=== PATIENT | male | born 1945 ===

== ENCOUNTER 2017-04-25 05:34 | Emergency (ER) | payer OTHER, MEDICARE ==
[2017-04-25 06:02] VITALS: RESP 18; O2SAT 99
[2017-04-25] MEDS ORDERED: Sodium Chloride 0.9% 1,000 ML IV STA (06:47)
--- NOTE | 2017-04-25 06:56 | ED PDOC ---
HPI: Headache Time Seen by Provider: 04/25/17 06:32 Chief Complaint (Nursing): Headache Chief Complaint (Provider): Headache History Per: Patient History/Exam Limitations: no limitations Onset/Duration Of Symptoms: Days (x10) Current Symptoms Are (Timing): Still Present Associated Symptoms: denies: Photophobia, Blurred Vision, Extremity Weakness Additional Complaint(s): 71 year old male presents to ED with complaints of headache and has a past medical history of DM. Describes the headache as constant and throbbing, not thunderclap. (-) photophobia, phonophobia, weakness, numbness, fever, or neck stiffness. States that he came in today because his symptoms kept him from sleeping and denies taking any medication [employer]. Patient also notes resolving abdominal pain present in the right flank area present since yesterday. Patient also notes x2 days of dysuria, (+) chills. PCP: Dr. Ortega in [place] Past Medical History Reviewed: Historical Data, Nursing Documentation, Vital Signs Vital Signs: Last Vital Signs Temp 98.9 F 04/25/17 05:55 Pulse 74 04/25/17 05:55 Resp 18 04/25/17 05:55 BP 144/77 04/25/17 05:55 Pulse Ox 99 04/25/17 05:55 - Medical History PMH: Benign Prostatic Hyperplasia, Diabetes, HTN - Surgical History Surgical History: Hernia Repair ( x 2) - Family History Family History: States: Unknown Family Hx - Social History Alcohol: Occasional - Home Medications Home Medications: Ambulatory Orders Medication Instructions Recorded Alfuzosin Hydrochloride 10 mg PO DAILY 12/31/14 Cetirizine Hydrochloride 10 mg PO DAILY 12/31/14 [Cetirizine] Glimepiride 4 mg PO BID 12/31/14 Methylprednisolone [Medrol Dose 4 mg PO DAILY 12/31/14 Pack (21 tabs)] Pioglitazone [Actos] 15 mg PO DAILY 12/31/14 Prednisone 10 mg PO BID #10 tab 12/31/14 Propranolol [Inderal] 20 mg PO BID 12/31/14 Ranitidine HCl [Ranitidine 150] 150 mg PO BID 12/31/14 Sitagliptin Phosphate [Januvia] 100 mg PO DAILY 12/31/14 hydrOXYzine HCl [Atarax] 25 mg PO Q6H PRN 12/31/14 Naproxen 500 mg PO Q12 #20 tab 07/02/15 Sulfamethoxazole/Trimethopri 1 tab PO BID #20 tab 07/02/15 [Bactrim Ds 800 mg-160 mg] Ibuprofen [Motrin] 400 mg PO Q8 #30 tab 07/12/15 Ibuprofen [Motrin] 600 mg PO Q8 PRN #21 tab 08/30/15 diaZEpam [Valium] 5 mg PO Q6 PRN #8 tab 08/30/15 Tramadol Hydrochloride 50 mg PO Q6 PRN #15 tab 09/02/15 - Allergies Allergies/Adverse Reactions: Allergies Allergy/AdvReac Type Severity Reaction Status Date / Time No Known Allergies Allergy Verified 04/25/17 05:54 Review of Systems ROS Statement: Except As Marked, All Systems Reviewed And Found Negative Constitutional: Positive for: Chills. Negative for: Fever Eyes: Negative for: Other (photophobia) ENT: Negative for: Other (phonophobia) Gastrointestinal: Positive for: Abdominal Pain (resolving right flank pain) Genitourinary Male: Positive for: Dysuria Musculoskeletal: Negative for: Neck Pain (no neck stiffness) Neurological: Positive for: Headache. Negative for: Weakness, Numbness Physical Exam - Reviewed Nursing Documentation Reviewed: Yes Vital Signs Reviewed: Yes - Physical Exam Appears: Positive for: Well, Non-toxic, No Acute Distress Head Exam: Positive for: ATRAUMATIC Skin: Positive for: Normal Color, Warm, Dry Eye Exam: Positive for: Normal appearance, EOMI, PERRL ENT: Positive for: Normal ENT Inspection Neck: Positive for: Normal, Painless ROM, Supple Cardiovascular/Chest: Positive for: Regular Rate, Rhythm. Negative for: Murmur Respiratory: Positive for: Normal Breath Sounds. Negative for: Respiratory Distress Gastrointestinal/Abdominal: Positive for: Normal Exam, Soft. Negative for: Tenderness Back: Positive for: Normal Inspection Extremity: Positive for: Normal ROM. 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 Negative for: Motor/Sensory Deficits - ECG O2 Sat by Pulse Oximetry: 99 (RA) Pulse Ox Interpretation: Normal Medical Decision Making Medical Decision Makin Initial impression: migraine headache, unspecified abdominal pain Initial plan: * CT A/P * CT HEAD * EKG * Labs * Lipase * NS IV * Reglan 10mg IVP * Toradol 30mg IVP * UCx * UA * Re-eval Scribe Attestation: Documented by Kenya Nunez acting as a scribe for Addison Deshpande MD. Scribe Attestation: All medical record entries made by the Scribe were at my direction and personally dictated by me. I have reviewed the chart and agree that the record accurately reflects my personal performance of the history, physical exam, medical decision making, and the department course for this patient. I have also personally directed, reviewed, and agree with the discharge instructions and disposition. Disposition - Clinical Impression Clinical Impression: Migraine - Disposition Referrals: Marcelino Perez MD [Primary Care Provider] - Disposition: Transfer of Care Disposition Time: 07:00 Condition: STABLE Patient Signed Over To: Taras Tan Handoff Comments: Pending work up
[2017-04-25 07:23] LABS: BASO % 0.7 % (0.0-2.0); EOS # 0.1 K/uL (0.0-0.7); EOS % 1.8 % (0.0-4.0); HEMOGLOBIN 14.1 g/dL (12.0-18.0); LYMPH # 1.2 K/uL (1.0-4.3); LYMPH % 18.5 % (20.0-40.0); MEAN CELL VOLUME 88.1 fl (80.0-94.0); MEAN CORPUSCULAR HEMOGLOBIN 30.2 pg (27.0-31.0); MEAN CORPUSCULAR HGB CONC 34.2 g/dL (33.0-37.0); MEAN PLATELET VOLUME 10.2 fl (7.2-11.7); MONO # 0.6 K/uL (0.0-0.8); MONO % 8.9 % (0.0-10.0); NEUT # 4.6 K/uL (1.8-7.0); NEUT % 70.1 % (50.0-75.0); NRBC % 0.1 % (0.0-0.0); RBC 4.69 Mil/uL (4.40-5.90); WHITE BLOOD COUNT 6.6 K/uL (4.8-10.8)
[2017-04-25 07:37] LABS: ALB/GLOB RATIO 1.3 (1.0-2.1); ALBUMIN 4.1 g/dL (3.5-5.0); ALT/SGPT 61 U/L (21-72); AST/SGOT 53 U/L (17-59); BLOOD UREA NITROGEN 14 mg/dl (9-20); GFR AFRICAN-AMERICAN > 60; GFR NON-AFRICAN AMERICAN > 60; LIPASE 125 U/L (23-300)
--- NOTE | 2017-04-25 08:18 | CT ---
PROCEDURE: CT HEAD WITHOUT CONTRAST. HISTORY: ABBOTT x 10 days COMPARISON: None available. TECHNIQUE: Axial computed tomography images were obtained through the head/brain without intravenous contrast. Radiation dose: Total exam DLP = 869.25 mGy-cm. This CT exam was performed using one or more of the following dose reduction techniques: Automated exposure control, adjustment of the mA and/or kV according to patient size, and/or use of iterative reconstruction technique. FINDINGS: HEMORRHAGE: No intracranial hemorrhage. BRAIN: There are mild chronic microangiopathic changes. There is no mass mass effect or abnormal extra-axial fluid collection. VENTRICLES: There is mild age-related global parenchymal volume loss and proportionate enlargement of the ventricles and cortical sulci. CALVARIUM: The skull base and calvarium are normal. PARANASAL SINUSES: Predominantly clear. MASTOID AIR CELLS: Predominantly clear. OTHER FINDINGS: None. IMPRESSION: No acute intracranial abnormality.
--- NOTE | 2017-04-25 08:43 | CT ---
PROCEDURE: CT Abdomen and Pelvis without intravenous contrast HISTORY: R FLANK PAIN R/O RENAL STONE COMPARISON: None. TECHNIQUE: CT scan of the abdomen and pelvis was performed without administration of oral or intravenous contrast. Coronal and sagittal reformatted images were obtained. Radiation dose: Total exam DLP = 467.89 mGy-cm. This CT exam was performed using one or more of the following dose reduction techniques: Automated exposure control, adjustment of the mA and/or kV according to patient size, and/or use of iterative reconstruction technique. FINDINGS: LOWER THORAX: There is bibasilar subsegmental atelectasis. LIVER: The liver is normal in size. No gross lesion or ductal dilatation. GALLBLADDER AND BILE DUCTS: No calcified gallstones. PANCREAS: The pancreas is normal in size. No gross lesion or ductal dilatation. SPLEEN: The spleen is normal in size. ADRENALS: Both adrenal glands are normal in size without discrete nodule. KIDNEYS AND URETERS: Both kidneys are normal in size without hydronephrosis or nephrolithiasis. VASCULATURE: No aortic aneurysm. BOWEL: The small bowel loops are normal in caliber. There is large amount of stool in the colon. There is sigmoid diverticulosis without CT evidence for acute diverticulitis. APPENDIX: Normal appendix. PERITONEUM: No free fluid. No free air. LYMPH NODES: No enlarged lymph nodes. BLADDER: Grossly normal in appearance. REPRODUCTIVE: There is mild enlargement of the prostate gland. BONES: No acute fracture. There is exaggerated lumbar lordosis and mild multilevel degenerative disc disease. OTHER FINDINGS: There are bilateral small inguinal hernias containing nonobstructive bowel loops. IMPRESSION: No acute abdominal or pelvic abnormality. Specifically, no evidence of nephrolithiasis or obstructive uropathy. Constipation. Sigmoid diverticulosis without CT evidence for acute diverticulitis with Bilateral small inguinal hernias containing nonobstructed bowel loops. Mild enlargement of the prostate gland. Please correlate with PSA levels.
[2017-04-25 08:49] LABS: SQUAMOUS EPITHIAL 2 /hpf (0-5); URINE BACTERIA RARE (<OCC); URINE BILIRUBIN NEGATIVE (NEGATIVE); URINE BLOOD NEGATIVE (NEGATIVE); URINE COLOR YELLOW (YELLOW); URINE GLUCOSE (UA) 150 mg/dL (Normal); URINE NITRATE NEGATIVE (NEGATIVE); URINE PROTEIN 100 mg/dL (NEGATIVE); URINE UROBILINOGEN 0.2-1.0 mg/dL (0.2-1.0)
[2017-04-25 09:46] LABS: URINE CLARITY Clear (Clear)
[2017-04-25 09:47] LABS: URINE LEUKOCYTE ESTERASE NEGATIVE Leu/uL (Negative)
--- NOTE | 2017-04-25 11:47 | MRI ---
PROCEDURE: MRI BRAIN WITHOUT CONTRAST HISTORY: Headache r/o aneursym COMPARISON: Noncontrast head CT from 04/25/2017. TECHNIQUE: Multiplanar, multisequence MR images of the brain were obtained without intravenous contrast enhancement. FINDINGS: HEMORRHAGE: None DWI: No evidence of an acute or early subacute infarction. BRAIN PARENCHYMA: There are mild chronic microangiopathic changes. There is no mass, mass effect or abnormal extra-axial fluid collection. The midline sagittal structures are normal. VENTRICLES: There is mild age-related global parenchymal volume loss and proportionate enlargement of the ventricles and cortical sulci. CRANIUM: There is normal bone marrow signal pattern. ORBITS: Grossly unremarkable. PARANASAL SINUSES/MASTOIDS: Predominantly clear. VASCULAR SYSTEM: There are normal signal voids in the larger intracranial arteries. OTHER FINDINGS: None. IMPRESSION: 1. No acute intracranial abnormality. 2. Mild chronic microangiopathic changes and mild age-related global parenchymal volume loss.
--- NOTE | 2017-04-25 11:52 | MRI ---
PROCEDURE: Magnetic Resonance Angiography Brain HISTORY: de jesus r/o aneurysm COMPARISON: None available. TECHNIQUE: 3D time of flight MR angiography of the intracranial arteries was performed. Rotating maximum intensity projection images were generated. FINDINGS: INTERNAL CEREBRAL ARTERIES: Normal in caliber. The skull base, petrous, cavernous and supraclinoid segments are bilaterally widely patient. ANTERIOR CEREBRAL ARTERIES: Normal in caliber. A1 and A2 segments are widely patent. Smaller distal branches unremarkable, as visualized. MIDDLE CEREBRAL ARTERIES: Normal in caliber. M1 and M2 segments are widely patent. Perisylvian branches grossly symmetric. POSTERIOR CIRCULATION: Basilar Artery: Normal. Distal Vertebral Arteries: Normal. Posterior Cerebral Arteries: Normal. Posterior Inferior Cerebellar Arteries: Normal. ANEURYSM/ VASCULAR MALFORMATIONS: None. OTHER FINDINGS: None. IMPRESSION: Normal MR angiography of the brain.
--- NOTE | 2017-04-25 12:14 | ED PDOC ---
- Laboratory Results Result Diagrams: 04/25/17 07:15 04/25/17 07:15 - ECG O2 Sat by Pulse Oximetry: 99 (RA) Pulse Ox Interpretation: Normal - Progress ED Course And Treament: pt nml neuro exam. Re-evaluation Time: 11:00 Condition: Improved Medical Decision Making Medical Decision Making: Patient was signed out to provider from Dr. Deshpande at 0700 pending MRI 1212 MRI was normal patient given instructions to follow up with neurology and medical clinic. Scribe Attestation Documented by Rosalba Posada acting as a scribe for Taras Tan MD. Provider Attestation All medical record entries made by the Scribe were at my direction and personally dictated by me. I have reviewed the chart and agree that the record accurately reflects my personal performance of the history, physical exam, medical decision making, and the department course for this patient. I have also personally directed, reviewed, and agree with the discharge instructions and disposition. Disposition Counseled Patient/Family Regarding: Studies Performed, Diagnosis, Need For Followup - Clinical Impression Clinical Impression: Migraine - POA Present On Arrival: None - Disposition Referrals: Marcelino Perez MD [Primary Care Provider] - Disposition: Routine/Home Disposition Time: 11:12 Condition: GOOD Prescriptions: Acetaminophen 650 mg PO QID PRN #30 tablet PRN Reason: Pain, Mild (1-3) Instructions: Acute Headache (ED) Forms: [employer] (Palauan) Print Language: VENEZUEL[place]
[2017-04-25 12:32] LABS: INR 1.1 (0.9-1.2); PROTHROMBIN TIME 12.6 Seconds (9.8-13.1)
[2017-04-25 12:33] LABS: PARTIAL THROMBOPLASTIN TIME 37.8 Seconds (25.6-37.1)
[2017-04-25 13:01] VITALS: BP 132/78; PULSE 78; TEMP 98.2
--- NOTE | 2017-04-25 17:13 | CARD ---
APPROVED REPORT EKG Measurement Heart [id number] <Conclusion> Normal sinus rhythm Septal infarct, age undetermined Abnormal ECG
== END 2017-04-25 13:00 | disposition home or self-care (01) ==
LOC: H.ER 05:34
DX: G43.909 Migraine, unspecified, not intractable, without status migrainosus (principal); E11.9 Type 2 diabetes mellitus without complications; I10 Essential (primary) hypertension; K57.30 Diverticulosis of large intestine without perforation or abscess without bleeding; N40.0 Benign prostatic hyperplasia without lower urinary tract symptoms

== ENCOUNTER 2017-12-22 16:34 | Emergency (ER) | payer OTHER, MEDICARE ==
[2017-12-22 16:44] VITALS: BP 155/79; PULSE 79; RESP 17; TEMP 97.7; O2SAT 98
--- NOTE | 2017-12-22 17:43 | ED PDOC ---
HPI: Male Pain Time Seen by Provider: 12/22/17 16:44 Chief Complaint (Nursing): Male Genitourinary History Per: Patient History/Exam Limitations: no limitations Onset/Duration Of Symptoms: Hrs (4), Gradual Current Symptoms Are (Timing): Still Present Severity: Mild Quality Of Discomfort: Dull, Cramping, Burning Associated Symptoms: Urinary Symptoms. denies: Fever, Chills, Nausea, Vomiting , Diarrhea, Constipation Alleviating Factors: None Additional History Per: Patient Additional Complaint(s): suprapubic pain and dysurai for 4 hours no testicular pain similar sx to uti, states unable to uriante with sig reduced flow. Past Medical History Reviewed: Historical Data, Nursing Documentation, Vital Signs Vital Signs: Last Vital Signs Temp 97.7 F 12/22/17 16:42 Pulse 79 12/22/17 16:42 Resp 17 12/22/17 16:42 BP 155/79 H 12/22/17 16:42 Pulse Ox 98 12/22/17 16:42 - Medical History PMH: Benign Prostatic Hyperplasia, Diabetes, HTN - Surgical History Surgical History: Hernia Repair ( x 2) - Family History Family History: States: Unknown Family Hx - Living Arrangements Living Arrangements: With Family - Social History Current smoker - smoking cessation education provided: No - Home Medications Home Medications: Ambulatory Orders Medication Instructions Recorded Alfuzosin Hydrochloride 10 mg PO DAILY 12/31/14 Cetirizine Hydrochloride 10 mg PO DAILY 12/31/14 [Cetirizine] Glimepiride 4 mg PO BID 12/31/14 Methylprednisolone [Medrol Dose 4 mg PO DAILY 12/31/14 Pack (21 tabs)] Pioglitazone [Actos] 15 mg PO DAILY 12/31/14 Prednisone 10 mg PO BID #10 tab 12/31/14 Propranolol [Inderal] 20 mg PO BID 12/31/14 Ranitidine HCl [Ranitidine 150] 150 mg PO BID 12/31/14 Sitagliptin Phosphate [Januvia] 100 mg PO DAILY 12/31/14 hydrOXYzine HCl [Atarax] 25 mg PO Q6H PRN 12/31/14 Naproxen 500 mg PO Q12 #20 tab 07/02/15 Sulfamethoxazole/Trimethopri 1 tab PO BID #20 tab 07/02/15 [Bactrim Ds 800 mg-160 mg] Ibuprofen [Motrin] 400 mg PO Q8 #30 tab 07/12/15 Ibuprofen [Motrin] 600 mg PO Q8 PRN #21 tab 08/30/15 diaZEpam [Valium] 5 mg PO Q6 PRN #8 tab 08/30/15 Tramadol Hydrochloride 50 mg PO Q6 PRN #15 tab 09/02/15 Acetaminophen 650 mg PO QID PRN #30 tablet 04/25/17 Tamsulosin [Flomax] 0.4 mg PO DAILY #30 cap 12/22/17 - Allergies Allergies/Adverse Reactions: Allergies Allergy/AdvReac Type Severity Reaction Status Date / Time No Known Allergies Allergy Verified 04/25/17 05:54 Review of Systems ROS Statement: Except As Marked, All Systems Reviewed And Found Negative Constitutional: Negative for: Fever, Chills Cardiovascular: Negative for: Chest Pain, Palpitations Respiratory: Negative for: Cough, Shortness of Breath Gastrointestinal: Negative for: Nausea, Vomiting, Abdominal Pain, Diarrhea Genitourinary Male: Positive for: Dysuria, Frequency. Negative for: Incontinence, Hematuria Neurological: Negative for: Weakness, Numbness Physical Exam - Reviewed Nursing Documentation Reviewed: Yes Vital Signs Reviewed: Yes - Physical Exam Appears: Positive for: Uncomfortable Head Exam: Positive for: ATRAUMATIC, NORMAL INSPECTION, NORMOCEPHALIC Eye Exam: Positive for: Normal appearance, EOMI, PERRL Neck: Positive for: Normal, Painless ROM Cardiovascular/Chest: Positive for: Regular Rate, Rhythm, Chest Non Tender. Negative for: Edema, Gallop, Murmur, Bradycardia, Tachycardia Respiratory: Positive for: Normal Breath Sounds. Negative for: Decreased Breath Sounds, Accessory Muscle Use, Crackles, Rales, Rhonchi Pulses-Radial (L): 2+ Pulses-Radial (R): 2+ Gastrointestinal/Abdominal: Positive for: Normal Exam, Bowel Sounds, Soft. Negative for: Tenderness Male Genital Exam: Positive for: normal genitalia, normal prostate, no hernia, other (bl bremaster reflex intat). Negative for: epididymal tenderness, scrotum tenderness (R), scrotum tenderness (L), testicular tenderness (R), testicular tenderness (L) Back: Negative for: L CVA Tenderness, R CVA Tenderness Extremity: Positive for: Normal ROM. 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 Negative for: Motor/Sensory Deficits - Laboratory Results Result Diagrams: 12/22/17 17:55 12/22/17 17:55 - ECG O2 Sat by Pulse Oximetry: 98 Pulse Ox Interpretation: Normal - Progress ED Course And Treament: PROCEDURE: CT Abdomen and Pelvis without Oral or IV contrast. HISTORY: bl lfank pain r/o stones COMPARISON: CT abdomen and pelvis without contrast performed 04/25/17 TECHNIQUE: Contiguous axial images of the abdomen and pelvis. No oral or IV contrast administered. Coronal and Sagittal reformats generated. Radiation dose: Total exam DLP = 487.84 mGy-cm. This CT exam was performed using one or more of the following dose reduction techniques: Automated exposure control, adjustment of the mA and/or kV according to patient size, and/or use of iterative reconstruction technique. FINDINGS: There is limited evaluation of the solid organs without the administration of IV contrast. LOWER THORAX: No visible consolidation, pleural effusion, or pneumothorax. LIVER: Unremarkable unenhanced appearance. GALLBLADDER AND BILE DUCTS: Unremarkable unenhanced appearance. PANCREAS: Unremarkable unenhanced appearance. SPLEEN: Unremarkable unenhanced appearance. ADRENALS: Unremarkable unenhanced appearance. KIDNEYS AND URETERS: No hydronephrosis or obstructing renal calculus. BLADDER: The urinary bladder appears unremarkable. REPRODUCTIVE: Markedly enlarged prostate gland measures approximately 5.3 x 7.2 cm. APPENDIX: The appendix appears within normal limits of caliber. No secondary signs of acute appendicitis. BOWEL: The stomach is nondistended. Lack of oral contrast limits evaluation for bowel pathology. The bowel loops appear within normal limits of caliber without evidence of intestinal obstruction. Extensive diverticulosis without CT evidence of acute diverticulitis. PERITONEUM: No significant free fluid. No definite free air. LYMPH NODES: No bulky lymphadenopathy identified. VASCULATURE: No aortic aneurysm. BONES: Degenerative changes. OTHER FINDINGS: Bilateral small inguinal hernias with bowel loops near the hernia mouths without obstruction. IMPRESSION: Markedly enlarged prostate gland. Recommend correlation with PSA. Extensive diverticulosis without CT evidence of acute diverticulitis. Additional findings as above. Re-evaluation Time: 19:19 Condition: Improved Medical Decision Making Medical Decision Makinpm pt has urinary obstruction on us. will place cardenas will d/c to urological f/u. advise flomax. all of pt's questions were answered and pt agree' s with plan. Disposition - Clinical Impression Clinical Impression: Urinary obstruction - Patient ED Disposition Is Patient to be Admitted: No Counseled Patient/Family Regarding: Studies Performed, Diagnosis, Need For Followup, Rx Given - Disposition Referrals: Yobany Cardoza MD [Medical Doctor] - (2 to 3 days) Disposition: Routine/Home Disposition Time: 22:00 Condition: GOOD Prescriptions: Tamsulosin [Flomax] 0.4 mg PO DAILY #30 cap Instructions: Urinary Obstruction Forms: [employer] [place] [employer] (British)
[2017-12-22 18:11] LABS: BASO # 0.1 K/uL (0.0-0.2); BASO % 1.3 % (0.0-2.0); EOS # 0.2 K/uL (0.0-0.7); EOS % 3.4 % (0.0-4.0); HEMOGLOBIN 14.6 g/dL (12.0-18.0); LYMPH % 35.8 % (20.0-40.0); MEAN CELL VOLUME 88.5 fl (80.0-94.0); MEAN CORPUSCULAR HEMOGLOBIN 29.9 pg (27.0-31.0); MEAN CORPUSCULAR HGB CONC 33.7 g/dL (33.0-37.0); MEAN PLATELET VOLUME 9.6 fl (7.2-11.7); MONO # 0.6 K/uL (0.0-0.8); MONO % 10.2 % (0.0-10.0); NEUT # 2.7 K/uL (1.8-7.0); NEUT % 49.3 % (50.0-75.0); NRBC % 0.1 % (0.0-0.0); RBC 4.88 Mil/uL (4.40-5.90); RED CELL DISTRIBUTION WIDTH 13.7 % (11.5-14.5); WHITE BLOOD COUNT 5.5 K/uL (4.8-10.8)
[2017-12-22 18:22] LABS: ALB/GLOB RATIO 1.1 (1.0-2.1); ALBUMIN 4.2 g/dL (3.5-5.0); ALT/SGPT 60 U/L (21-72); AMYLASE 148 U/L (30-110); AST/SGOT 58 U/L (17-59); BLOOD UREA NITROGEN 12 mg/dl (9-20); CALCIUM 9.7 mg/dL (8.4-10.2); GFR AFRICAN-AMERICAN > 60; GFR NON-AFRICAN AMERICAN > 60; LIPASE 170 U/L (23-300)
[2017-12-22 18:37] LABS: SQUAMOUS EPITHIAL 1 /hpf (0-5); URINE BACTERIA RARE (<OCC); URINE BILIRUBIN NEGATIVE (NEGATIVE); URINE BLOOD SMALL (NEGATIVE); URINE CLARITY CLOUDY (Clear); URINE COLOR YELLOW (YELLOW); URINE GLUCOSE (UA) >=500 mg/dL (Normal); URINE LEUKOCYTE ESTERASE LARGE Leu/uL (Negative); URINE NITRATE NEGATIVE (NEGATIVE); URINE PROTEIN NEGATIVE (NEGATIVE); URINE UROBILINOGEN 0.2-1.0 mg/dL (0.2-1.0); WBC CLUMPS MANY /hpf
--- NOTE | 2017-12-22 18:46 | CT ---
PROCEDURE: CT Abdomen and Pelvis without Oral or IV contrast. HISTORY: bl lfank pain r/o stones COMPARISON: CT abdomen and pelvis without contrast performed 04/25/17 TECHNIQUE: Contiguous axial images of the abdomen and pelvis. No oral or IV contrast administered. Coronal and Sagittal reformats generated. Radiation dose: Total exam DLP = 487.84 mGy-cm. This CT exam was performed using one or more of the following dose reduction techniques: Automated exposure control, adjustment of the mA and/or kV according to patient size, and/or use of iterative reconstruction technique. FINDINGS: There is limited evaluation of the solid organs without the administration of IV contrast. LOWER THORAX: No visible consolidation, pleural effusion, or pneumothorax. LIVER: Unremarkable unenhanced appearance. GALLBLADDER AND BILE DUCTS: Unremarkable unenhanced appearance. PANCREAS: Unremarkable unenhanced appearance. SPLEEN: Unremarkable unenhanced appearance. ADRENALS: Unremarkable unenhanced appearance. KIDNEYS AND URETERS: No hydronephrosis or obstructing renal calculus. BLADDER: The urinary bladder appears unremarkable. REPRODUCTIVE: Markedly enlarged prostate gland measures approximately 5.3 x 7.2 cm. APPENDIX: The appendix appears within normal limits of caliber. No secondary signs of acute appendicitis. BOWEL: The stomach is nondistended. Lack of oral contrast limits evaluation for bowel pathology. The bowel loops appear within normal limits of caliber without evidence of intestinal obstruction. Extensive diverticulosis without CT evidence of acute diverticulitis. PERITONEUM: No significant free fluid. No definite free air. LYMPH NODES: No bulky lymphadenopathy identified. VASCULATURE: No aortic aneurysm. BONES: Degenerative changes. OTHER FINDINGS: Bilateral small inguinal hernias with bowel loops near the hernia mouths without obstruction. IMPRESSION: Markedly enlarged prostate gland. Recommend correlation with PSA. Extensive diverticulosis without CT evidence of acute diverticulitis. Additional findings as above.
--- NOTE | 2017-12-22 22:05 | US ---
EXAM: US Retroperitoneal Limited, bladder CLINICAL HISTORY: 72 years old, male; Signs and symptoms; Other: Can not void; Additional info: Bladder scan for urianry retention TECHNIQUE: Real-time ultrasound of the bladder (limited) with image documentation. COMPARISON: No relevant prior studies available. FINDINGS: Bladder: Pre-void volume = 493 cc. Post void volume = 444 cc. Ureteral jets not visualized. Prostate: 7.6 x 5.7 x 5.8 cm in size. Heterogeneous. IMPRESSION: 1. Elevated post void residual. 2. Prostate enlargement. Followup as clinically warranted.
== END 2017-12-22 23:38 | disposition home or self-care (01) ==
LOC: H.ER 16:34
DX: N13.9 Obstructive and reflux uropathy, unspecified (principal); N40.0 Benign prostatic hyperplasia without lower urinary tract symptoms

== ENCOUNTER 2017-12-27 13:00 | Emergency (ER) | payer OTHER, MEDICARE ==
[2017-12-27 13:06] VITALS: BP 148/83; PULSE 76; RESP 18; TEMP 97.4; O2SAT 100
--- NOTE | 2017-12-31 15:13 | ED PDOC ---
HPI: Male Pain Time Seen by Provider: 12/27/17 13:19 Chief Complaint (Nursing): Male Genitourinary History Per: Patient Additional Complaint(s): Pt. here for cardenas catheter removal. States he had cardenas placed 5 days ago here in [facility] ED by ED staff due to incontinence. States his dysuria has resolved and he has been taking his antibiotics. Denies fever, abdominal pain, back pain, N/V , penile pain, penile discharge, penile rash. Past Medical History Reviewed: Historical Data, Nursing Documentation, Vital Signs Vital Signs: Last Vital Signs Temp 97.4 F L 12/27/17 13:02 Pulse 76 12/27/17 13:02 Resp 18 12/27/17 13:02 BP 148/83 12/27/17 13:02 Pulse Ox 100 12/27/17 13:02 - Medical History PMH: Benign Prostatic Hyperplasia, Diabetes, HTN - Surgical History Surgical History: Hernia Repair ( x 2) - Family History Family History: States: No Known Family Hx - Home Medications Home Medications: Ambulatory Orders Medication Instructions Recorded Alfuzosin Hydrochloride 10 mg PO DAILY 12/31/14 Cetirizine Hydrochloride 10 mg PO DAILY 12/31/14 [Cetirizine] Glimepiride 4 mg PO BID 12/31/14 Methylprednisolone [Medrol Dose 4 mg PO DAILY 12/31/14 Pack (21 tabs)] Pioglitazone [Actos] 15 mg PO DAILY 12/31/14 Prednisone 10 mg PO BID #10 tab 12/31/14 Propranolol [Inderal] 20 mg PO BID 12/31/14 Ranitidine HCl [Ranitidine 150] 150 mg PO BID 12/31/14 Sitagliptin Phosphate [Januvia] 100 mg PO DAILY 12/31/14 hydrOXYzine HCl [Atarax] 25 mg PO Q6H PRN 12/31/14 Naproxen 500 mg PO Q12 #20 tab 07/02/15 Sulfamethoxazole/Trimethopri 1 tab PO BID #20 tab 07/02/15 [Bactrim Ds 800 mg-160 mg] Ibuprofen [Motrin] 400 mg PO Q8 #30 tab 07/12/15 Ibuprofen [Motrin] 600 mg PO Q8 PRN #21 tab 08/30/15 diaZEpam [Valium] 5 mg PO Q6 PRN #8 tab 08/30/15 Tramadol Hydrochloride 50 mg PO Q6 PRN #15 tab 09/02/15 Acetaminophen 650 mg PO QID PRN #30 tablet 04/25/17 Tamsulosin [Flomax] 0.4 mg PO DAILY #30 cap 12/22/17 Nitrofurantoin Macrocrystals 100 mg PO BID #14 cap 12/24/17 [Macrobid] - Allergies Allergies/Adverse Reactions: Allergies Allergy/AdvReac Type Severity Reaction Status Date / Time No Known Allergies Allergy Verified 04/25/17 05:54 Review of Systems ROS Statement: Except As Marked, All Systems Reviewed And Found Negative Physical Exam - Physical Exam Appears: Positive for: Well, Non-toxic, No Acute Distress Skin: Positive for: Normal Color, Warm. Negative for: Rash Eye Exam: Positive for: Normal appearance Male Genital Exam: Positive for: normal genitalia, other (cardenas catheter in place). Negative for: no hernia, bleeding, epididymal tenderness, erythema, scrotum tenderness (R), scrotum tenderness (L), testicular tenderness (R), testicular tenderness (L), urethral discharge Back: Negative for: L CVA Tenderness, R CVA Tenderness Neurologic/Psych: Positive for: Alert, Oriented - ECG O2 Sat by Pulse Oximetry: 100 - Progress ED Course And Treament: Cardenas catheter removed by RN. As per RN pt. voided in ED without difficulty. On re-evaluation, pt. offers no complaints. Denies dysuria. Disposition - Clinical Impression Clinical Impression: Encounter for Cardenas catheter removal - Patient ED Disposition Is Patient to be Admitted: No - Disposition Disposition: Routine/Home Disposition Time: 15:03 Condition: STABLE Instructions: Cardenas Catheter, Male Forms: [employer] (Norwegian) Print Language: CYMRO
== END 2017-12-27 15:20 | disposition home or self-care (01) ==
LOC: H.ER 13:00
DX: R32 Unspecified urinary incontinence (principal); Z46.6 Encounter for fitting and adjustment of urinary device; N40.0 Benign prostatic hyperplasia without lower urinary tract symptoms; I10 Essential (primary) hypertension; E11.9 Type 2 diabetes mellitus without complications

== ENCOUNTER 2018-07-14 10:16 | Emergency (ER) | payer OTHER, MEDICARE ==
[2018-07-14 10:33] VITALS: PULSE 60; RESP 19; TEMP 98.2; O2SAT 98
[2018-07-14] MEDS ORDERED: Sodium Chloride 0.9% 1,000 ML IV STA (11:30)
--- NOTE | 2018-07-14 11:51 | ED PDOC ---
HPI: General Adult Time Seen by Provider: 07/14/18 10:56 Chief Complaint (Provider): Left shoulder pain and dizziness History Per: Patient History/Exam Limitations: no limitations Onset/Duration Of Symptoms: Days (x2 months) Current Symptoms Are (Timing): Still Present Additional Complaint(s): Elia Rivera is a 72 year old male, with a past medical history of diabetes, HTN and BPH, who presents to the emergency department complaining of left shoulder pain onset for x2 months. Patient states pain worsens with movement and denies any injuries or trauma. Patient is also complaining of an intermittent dizziness onset for x3 days associated with a headache. He describes it as room spinning and worst when laying down. He took Advil PM with no relief of symptoms. He denies any leg swelling, chest pain, shortness of breath, vision changes, neck pain, numbness or tingling, weakness, fever, chills , nausea, vomit, diarrhea, abdominal pain or other medical complaints. PMD: Dr. Marcelino Ortega Past Medical History Reviewed: Historical Data, Nursing Documentation, Vital Signs Vital Signs: Last Vital Signs Temp 98.2 F 07/14/18 10:32 Pulse 60 07/14/18 10:32 Resp 19 07/14/18 10:32 BP 120/77 07/14/18 10:32 Pulse Ox 98 07/14/18 14:01 - Medical History PMH: Benign Prostatic Hyperplasia, Diabetes, HTN - Surgical History Surgical History: Hernia Repair ( x 2) - Family History Family History: States: Unknown Family Hx - Home Medications Home Medications: Ambulatory Orders Medication Instructions Recorded Alfuzosin Hydrochloride 10 mg PO DAILY 12/31/14 Cetirizine Hydrochloride 10 mg PO DAILY 12/31/14 [Cetirizine] Glimepiride 4 mg PO BID 12/31/14 Methylprednisolone [Medrol Dose 4 mg PO DAILY 12/31/14 Pack (21 tabs)] Pioglitazone [Actos] 15 mg PO DAILY 12/31/14 Prednisone 10 mg PO BID #10 tab 12/31/14 Propranolol [Inderal] 20 mg PO BID 12/31/14 Ranitidine HCl [Ranitidine 150] 150 mg PO BID 12/31/14 Sitagliptin Phosphate [Januvia] 100 mg PO DAILY 12/31/14 hydrOXYzine HCl [Atarax] 25 mg PO Q6H PRN 12/31/14 Naproxen 500 mg PO Q12 #20 tab 07/02/15 Sulfamethoxazole/Trimethopri 1 tab PO BID #20 tab 07/02/15 [Bactrim Ds 800 mg-160 mg] Ibuprofen [Motrin] 400 mg PO Q8 #30 tab 07/12/15 Ibuprofen [Motrin] 600 mg PO Q8 PRN #21 tab 08/30/15 diaZEpam [Valium] 5 mg PO Q6 PRN #8 tab 08/30/15 Tramadol Hydrochloride 50 mg PO Q6 PRN #15 tab 09/02/15 Acetaminophen 650 mg PO QID PRN #30 tablet 04/25/17 Tamsulosin [Flomax] 0.4 mg PO DAILY #30 cap 12/22/17 Nitrofurantoin Macrocrystals 100 mg PO BID #14 cap 12/24/17 [Macrobid] Ibuprofen [Motrin] 600 mg PO TID 7 Days tab 07/14/18 Meclizine [Meclizine*] 25 mg PO Q12 PRN #10 tab 07/14/18 - Allergies Allergies/Adverse Reactions: Allergies Allergy/AdvReac Type Severity Reaction Status Date / Time No Known Allergies Allergy Verified 04/25/17 05:54 Review of Systems ROS Statement: Except As Marked, All Systems Reviewed And Found Negative Constitutional: Negative for: Fever, Chills Eyes: Negative for: Vision Change Cardiovascular: Negative for: Chest Pain, Edema Respiratory: Negative for: Shortness of Breath Gastrointestinal: Negative for: Nausea, Vomiting, Abdominal Pain, Diarrhea Musculoskeletal: Positive for: Shoulder Pain (left). Negative for: Neck Pain Neurological: Positive for: Headache, Dizziness. Negative for: Weakness, Numbness (tingling) Physical Exam - Reviewed Nursing Documentation Reviewed: Yes Vital Signs Reviewed: Yes - Physical Exam Appears: Positive for: No Acute Distress Head Exam: Positive for: ATRAUMATIC, NORMOCEPHALIC Skin: Positive for: Normal Color, Warm, Dry Eye Exam: Positive for: Normal appearance, EOMI, PERRL Neck: Positive for: Painless ROM, Supple Cardiovascular/Chest: Positive for: Regular Rate, Rhythm. Negative for: Murmur Respiratory: Positive for: Normal Breath Sounds. Negative for: Respiratory Distress Gastrointestinal/Abdominal: Positive for: Normal Exam, Soft. Negative for: Tenderness, Guarding, Rebound Back: Positive for: Normal Inspection. Negative for: Vertebral Tenderness Extremity: Positive for: Tenderness (to left shoulder). Negative for: Normal ROM (Limited actively and passively due to pain on movement), Deformity, Swelling Neurologic/Psych: Positive for: Alert, Oriented, Gait (steady). Negative for: Motor/Sensory Deficits - Laboratory Results Result Diagrams: 07/14/18 11:48 07/14/18 11:48 Interpretation Of Abn Labs: 269 glucose - ECG ECG: Positive for: Interpreted By Me, Viewed By Me ECG Rhythm: Positive for: Normal QRS, Sinus Rhythm Interpretation Of Abn EKG: same as old O2 Sat by Pulse Oximetry: 98 (RA) Pulse Ox Interpretation: Normal - Radiology X-Ray: Read By Radiologist X-Ray Interpretation: No Acute Disease - CT Scan/US ct Other Rad Studies (CT/US): Read By Radiologist Other Rad Interpretation: no acute - Progress ED Course And Treament: 1413: Stable. AAOx3. Pain free. Tolerated PO. Fu with pcp. Glucose likely decreased with iv fluids given. Medical Decision Making Medical Decision Making: Time: 10:56 Initial Impression: Shoulder pain and dizziness Initial Plan: --Head w/o contrast [CT] --EKG --CMP --Troponin I --CBC w/ differential --Tylenol 325 mg tab 650 mg PO --Antivert 25 mg PO --Sodium Chloride 1,000 ml IV 1,000 mls/hr --Shoulder left [RAD] --Reevaluation ----- Scribe Attestation: Documented by Lester Guzman, acting as a scribe for Delmer Guaman MD. Provider Scribe Attestation: All medical record entries made by the Scribe were at my direction and personally dictated by me. I have reviewed the chart and agree that the record accurately reflects my personal performance of the history, physical exam, medical decision making, and the department course for this patient. I have also personally directed, reviewed, and agree with the discharge instructions and disposition. Disposition - Clinical Impression Clinical Impression: Shoulder pain, Dizziness - Patient ED Disposition Is Patient to be Admitted: No Counseled Patient/Family Regarding: Studies Performed, Diagnosis, Need For Followup, Rx Given - Disposition Referrals: [facility] [Outside] - 07/15/18 Disposition: Routine/Home Disposition Time: 14:14 Condition: STABLE Additional Instructions: Return if not better in 3 days. Prescriptions: Ibuprofen [Motrin] 600 mg PO TID 7 Days tab Meclizine [Meclizine*] 25 mg PO Q12 PRN #10 tab PRN Reason: Dizziness Instructions: Vertigo (a Type of Dizziness), Shoulder Pain (DC) Print Language: YAKUT
[2018-07-14 12:05] LABS: BASO % 0.5 % (0.0-2.0); EOS # 0.1 K/uL (0.0-0.7); HEMOGLOBIN 13.6 g/dL (12.0-18.0); LYMPH # 1.6 K/uL (1.0-4.3); LYMPH % 41.1 % (20.0-40.0); MEAN CELL VOLUME 88.5 fl (80.0-94.0); MEAN CORPUSCULAR HEMOGLOBIN 30.3 pg (27.0-31.0); MEAN CORPUSCULAR HGB CONC 34.2 g/dL (33.0-37.0); MEAN PLATELET VOLUME 9.8 fl (7.2-11.7); MONO # 0.4 K/uL (0.0-0.8); MONO % 10.9 % (0.0-10.0); NEUT # 1.8 K/uL (1.8-7.0); NEUT % 45.5 % (50.0-75.0); NRBC % 0.3 % (0.0-0.0); RBC 4.5 Mil/uL (4.40-5.90); RED CELL DISTRIBUTION WIDTH 13.7 % (11.5-14.5); WHITE BLOOD COUNT 3.9 K/uL (4.8-10.8)
[2018-07-14 12:07] LABS: ALBUMIN 3.6 g/dL (3.5-5.0); ALT/SGPT 59 U/L (21-72); AST/SGOT 54 U/L (17-59); BLOOD UREA NITROGEN 13 mg/dl (9-20); CALCIUM 9.1 mg/dL (8.4-10.2); GFR NON-AFRICAN AMERICAN > 60
--- NOTE | 2018-07-14 13:03 | CT ---
Date of service: 07/14/2018 PROCEDURE: CT HEAD WITHOUT CONTRAST. HISTORY: Headache COMPARISON: 04/25/2017. TECHNIQUE: Axial computed tomography images were obtained through the head/brain without intravenous contrast. Radiation dose: Total exam DLP = 711.73 mGy-cm. This CT exam was performed using one or more of the following dose reduction techniques: Automated exposure control, adjustment of the mA and/or kV according to patient size, and/or use of iterative reconstruction technique. FINDINGS: HEMORRHAGE: No intracranial hemorrhage. BRAIN: There are mild chronic microangiopathic changes. There is no mass, mass effect or abnormal extra-axial fluid collection. There is no territorial infarction. The midline sagittal structures are normal. VENTRICLES: There is mild age-related global parenchymal volume loss and proportionate enlargement of the ventricles and cortical sulci. CALVARIUM: The skull base and calvarium are normal. PARANASAL SINUSES: Predominantly clear. MASTOID AIR CELLS: Predominantly clear. OTHER FINDINGS: None. IMPRESSION: No acute intracranial abnormality. Mild chronic microangiopathic changes and mild age-related global parenchymal volume loss.
--- NOTE | 2018-07-14 13:52 | RAD ---
Date of service: 07/14/2018 PROCEDURE: Radiographs of the Left Shoulder HISTORY: Shoulder pain COMPARISON: No prior. FINDINGS: BONES: There is an old fracture deformity in the midshaft of the left clavicle. There is no acute displaced fracture or bone destruction. Bone alignment is normal. JOINTS: Normal. Glenohumeral and acromioclavicular joints preserved. No osteoarthritis. SOFT TISSUES: Normal. OTHER FINDINGS: None. IMPRESSION: No acute fracture or dislocation.
[2018-07-14 14:54] VITALS: BP 122/70
--- NOTE | 2018-07-14 16:17 | CARD ---
APPROVED REPORT Date of service: 07/14/2018 <Conclusion> Sinus bradycardia Septal infarct, age undetermined Abnormal ECG
== END 2018-07-14 14:52 | disposition home or self-care (01) ==
LOC: H.ER 10:16
DX: R42 Dizziness and giddiness (principal); M25.512 Pain in left shoulder; E11.9 Type 2 diabetes mellitus without complications; I10 Essential (primary) hypertension
CPT/HCPCS: 70450; 73030; 80053; 84484; 85025; 93005; 96360; 99281; J7030

== ENCOUNTER 2018-09-26 13:50 | Emergency (ER) | payer MEDICARE, OTHER ==
[2018-09-26 14:05] VITALS: O2SAT 100
--- NOTE | 2018-09-26 14:34 | ED PDOC ---
HPI: Trauma/Fall - HPI Time Seen by Provider: 09/26/18 14:11 Chief Complaint (Nursing): Rib Injury Chief Complaint (Provider): Rib pain History Per: Patient History/Exam Limitations: no limitations Onset/Duration Of Symptoms: Days (today) Additional Complaint(s): Pt. was walking and accidentally tripped on a rock when he stepped on it. Fell onto his left side, hurting his left shoulder, left ribs, and left hand. No numbness, tingles, weakness, headaches, neck pain, dyspnea, abd pain, back pain, leg pain. No loc. DId not hit his head on the ground. Past Medical History Reviewed: Nursing Documentation, Vital Signs Vital Signs: Last Vital Signs Temp 96.7 F L 09/26/18 14:01 Pulse 83 09/26/18 14:01 Resp 16 09/26/18 14:01 BP 166/107 H 09/26/18 14:01 Pulse Ox 100 09/26/18 14:01 - Medical History PMH: Benign Prostatic Hyperplasia, Diabetes, HTN - Surgical History Surgical History: Hernia Repair ( x 2) - Family History Family History: States: Unknown Family Hx - Social History Alcohol: None Drugs: Denies - Home Medications Home Medications: Ambulatory Orders Medication Instructions Recorded Alfuzosin Hydrochloride 10 mg PO DAILY 12/31/14 Cetirizine Hydrochloride 10 mg PO DAILY 12/31/14 [Cetirizine] Glimepiride 4 mg PO BID 12/31/14 Methylprednisolone [Medrol Dose 4 mg PO DAILY 12/31/14 Pack (21 tabs)] Pioglitazone [Actos] 15 mg PO DAILY 12/31/14 Prednisone 10 mg PO BID #10 tab 12/31/14 Propranolol [Inderal] 20 mg PO BID 12/31/14 Ranitidine HCl [Ranitidine 150] 150 mg PO BID 12/31/14 Sitagliptin Phosphate [Januvia] 100 mg PO DAILY 12/31/14 hydrOXYzine HCl [Atarax] 25 mg PO Q6H PRN 12/31/14 Naproxen 500 mg PO Q12 #20 tab 07/02/15 Sulfamethoxazole/Trimethopri 1 tab PO BID #20 tab 07/02/15 [Bactrim Ds 800 mg-160 mg] Ibuprofen [Motrin] 400 mg PO Q8 #30 tab 07/12/15 Ibuprofen [Motrin] 600 mg PO Q8 PRN #21 tab 08/30/15 diaZEpam [Valium] 5 mg PO Q6 PRN #8 tab 08/30/15 Tramadol Hydrochloride 50 mg PO Q6 PRN #15 tab 09/02/15 Acetaminophen 650 mg PO QID PRN #30 tablet 04/25/17 Tamsulosin [Flomax] 0.4 mg PO DAILY #30 cap 12/22/17 Nitrofurantoin Macrocrystals 100 mg PO BID #14 cap 12/24/17 [Macrobid] Ibuprofen [Motrin] 600 mg PO TID 7 Days tab 07/14/18 Meclizine [Meclizine*] 25 mg PO Q12 PRN #10 tab 07/14/18 - Allergies Allergies/Adverse Reactions: Allergies Allergy/AdvReac Type Severity Reaction Status Date / Time No Known Allergies Allergy Verified 09/26/18 14:00 Review of Systems ROS Statement: Except As Marked, All Systems Reviewed And Found Negative Cardiovascular: Positive for: Chest Pain Musculoskeletal: Positive for: Shoulder Pain, Hand Pain Physical Exam - Reviewed Nursing Documentation Reviewed: Yes Vital Signs Reviewed: Yes - Physical Exam Appears: Positive for: Non-toxic, No Acute Distress Head Exam: Positive for: ATRAUMATIC, NORMAL INSPECTION, NORMOCEPHALIC Skin: Positive for: Normal Color, Warm, DRY Eye Exam: Positive for: EOMI, Normal appearance, PERRL ENT: Positive for: Normal ENT Inspection Neck: Positive for: Normal, Painless ROM Cardiovascular/Chest: Positive for: Regular Rate, Rhythm. Negative for: Chest Non Tender (left lateral ribs tender; no echymosis) Respiratory: Positive for: CNT, Normal Breath Sounds Gastrointestinal/Abdominal: Positive for: Normal Exam, Soft. Negative for: Tenderness Back: Positive for: Normal Inspection. Negative for: L CVA Tenderness, R CVA Tenderness Extremity: Positive for: Normal ROM (with pain at shoulder left), Tenderness (left shoulder and left hand thenar, full rom and 5/5 strength b/l.). 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 Negative for: Motor/Sensory Deficits, Aphasia, Facial Droop - ECG O2 Sat by Pulse Oximetry: 100 - Progress ED Course And Treament: 1435: Dr. Encinas to fu on imaging. On asa, no other blood thinners. AAOx3. Disposition - Clinical Impression Clinical Impression: Shoulder injury, Rib injury - Patient ED Disposition Is Patient to be Admitted: Transfer of Care - Disposition Disposition: Transfer of Care Disposition Time: 14:36 Condition: STABLE Patient Signed Over To: Mary Encinas
--- NOTE | 2018-09-26 15:21 | ED PDOC ---
- ECG O2 Sat by Pulse Oximetry: 100 (RA) Pulse Ox Interpretation: Normal Medical Decision Making Medical Decision Making: Time: 1500 -- Patient with mechanical fall endorsed to me by Dr. Guaman, pending images. Most likely discharge home. 1700 --Initial read of xrays shows no acute fracture or dislocations. PT with improved pain. Pt encouraged to take Tylenol or Motrin at home for pain as needed. Pt already has an appointment with Dr. Ortega for next week. Pt instructed to return if symptoms worsen or if he develops trouble breathing, chest pain, or other new symptoms. Scribe Attestation: Documented by Nhung Knox, acting as a scribe for Mary Encinas MD. Provider Scribe Attestation: All medical record entries made by the Scribe were at my direction and personall y dictated by me. I have reviewed the chart and agree that the record accurately reflects my personal performance of the history, physical exam, medical decision making, and the department course for this patient. I have also personally directed, reviewed, and agree with the discharge instructions and disposition. Disposition - Clinical Impression Clinical Impression: Shoulder injury, Rib injury - POA Present On Arrival: None - Disposition Disposition: Routine/Home Disposition Time: 17:07 Condition: IMPROVED Forms: [employer] (Setswana)
[2018-09-26 19:26] VITALS: BP 129/87; PULSE 62; RESP 16; TEMP 98.1
--- NOTE | 2018-09-27 10:08 | RAD ---
Date of service: 09/26/2018 PROCEDURE: Radiographs of the Chest and Left Ribs. HISTORY: fall and injury COMPARISON: None available. TECHNIQUE: Frontal radiograph of the chest and multiple oblique radiographs of the left ribs were obtained. FINDINGS: LEFT RIBS: No fracture or focal lesion visualized. LUNGS: Clear. PLEURA: No pneumothorax or pleural fluid. CARDIOVASCULAR: Normal cardiac size. No pulmonary vascular congestion. No aortic atherosclerotic calcification present OTHER FINDINGS: None. IMPRESSION: Unremarkable radiographs of the chest and left ribs. No left rib fracture.
--- NOTE | 2018-09-27 10:09 | RAD ---
Date of service: 09/26/2018 PROCEDURE: Radiographs of the Left Shoulder HISTORY: fall and pain COMPARISON: No prior. FINDINGS: BONES: Normal. No fracture. JOINTS: Normal. Glenohumeral and acromioclavicular joints preserved. No osteoarthritis. SOFT TISSUES: Normal. OTHER FINDINGS: None. IMPRESSION: Normal radiographs of the left shoulder.
--- NOTE | 2018-09-27 11:10 | RAD ---
PROCEDURE: Left Hand Radiographs. HISTORY: fall and injury COMPARISON: None. FINDINGS: BONES: Normal. No fracture. JOINTS: Normal. No osteoarthritic changes. SOFT TISSUES: Normal. OTHER FINDINGS: None. IMPRESSION: Normal left hand radiographs.
== END 2018-09-26 17:55 | disposition home or self-care (01) ==
LOC: H.ER 13:50
DX: S49.92XA Unspecified injury of left shoulder and upper arm, initial encounter (principal); S29.9XXA Unspecified injury of thorax, initial encounter; W18.31XA Fall on same level due to stepping on an object, initial encounter

== ENCOUNTER 2018-11-13 05:58 | Emergency (ER) | payer MEDICARE ==
[2018-11-13 06:09] VITALS: RESP 18; BMI 23.3
[2018-11-13] MEDS ORDERED: Sodium Chloride 0.9% 1,000 ML IV STA (06:19)
--- NOTE | 2018-11-13 06:19 | ED PDOC ---
HPI: Male Pain Time Seen by Provider: 11/13/18 06:14 Chief Complaint (Nursing): Male Genitourinary Chief Complaint (Provider): Male Genitourinary History Per: Patient History/Exam Limitations: no limitations Onset/Duration Of Symptoms: Days Current Symptoms Are (Timing): Still Present Additional Complaint(s): 73 y/o male presents to the ED for evaluation of urinary retention, onset 3 hours ago. Patient reports his last normal void was yesterday at 10 AM. Otherwise, patient denies dysuria, hematuria, nausea, vomiting, diarrhea and fever. PMD: Joe Ortega Past Medical History Reviewed: Historical Data, Nursing Documentation, Vital Signs Vital Signs: Last Vital Signs Temp 97.6 F 11/13/18 06:13 Pulse 111 H 11/13/18 06:13 Resp 18 11/13/18 06:13 BP 156/84 H 11/13/18 06:13 Pulse Ox 99 11/13/18 06:13 - Medical History PMH: Benign Prostatic Hyperplasia, Diabetes, HTN - Surgical History Surgical History: Hernia Repair ( x 2) - Family History Family History: States: Unknown Family Hx - Home Medications Home Medications: Ambulatory Orders Medication Instructions Recorded Cetirizine Hydrochloride 10 mg PO DAILY 12/31/14 [Cetirizine] Methylprednisolone [Medrol Dose 4 mg PO DAILY 12/31/14 Pack (21 tabs)] Pioglitazone [Actos] 15 mg PO DAILY 12/31/14 RX: Alfuzosin Hydrochloride 10 mg PO DAILY 12/31/14 RX: Glimepiride 4 mg PO BID 12/31/14 RX: Prednisone 10 mg PO BID #10 tab 12/31/14 RX: Propranolol [Inderal] 20 mg PO BID 12/31/14 Ranitidine HCl [Ranitidine 150] 150 mg PO BID 12/31/14 Sitagliptin Phosphate [Januvia] 100 mg PO DAILY 12/31/14 hydrOXYzine HCl [Atarax] 25 mg PO Q6H PRN 12/31/14 RX: Naproxen 500 mg PO Q12 #20 tab 07/02/15 Sulfamethoxazole/Trimethopri 1 tab PO BID #20 tab 07/02/15 [Bactrim Ds 800 mg-160 mg] Ibuprofen [Motrin] 400 mg PO Q8 #30 tab 07/12/15 Ibuprofen [Motrin] 600 mg PO Q8 PRN #21 tab 08/30/15 diaZEpam [Valium] 5 mg PO Q6 PRN #8 tab 08/30/15 RX: Tramadol Hydrochloride 50 mg PO Q6 PRN #15 tab 09/02/15 RX: Acetaminophen 650 mg PO QID PRN #30 tablet 04/25/17 Tamsulosin [Flomax] 0.4 mg PO DAILY #30 cap 12/22/17 Nitrofurantoin Macrocrystals 100 mg PO BID #14 cap 12/24/17 [Macrobid] Ibuprofen [Motrin] 600 mg PO TID 7 Days tab 07/14/18 RX: Meclizine [Meclizine*] 25 mg PO Q12 PRN #10 tab 07/14/18 Nitrofurantoin Macrocrystals 100 mg PO BID #10 cap 11/13/18 [Macrobid] - Allergies Allergies/Adverse Reactions: Allergies Allergy/AdvReac Type Severity Reaction Status Date / Time No Known Allergies Allergy Verified 11/13/18 06:13 Review of Systems ROS Statement: Except As Marked, All Systems Reviewed And Found Negative Constitutional: Negative for: Fever Gastrointestinal: Negative for: Nausea, Vomiting, Diarrhea Genitourinary Male: Positive for: Other (retention). Negative for: Dysuria, Hematuria Physical Exam - Reviewed Nursing Documentation Reviewed: Yes Vital Signs Reviewed: Yes - Physical Exam Appears: Positive for: Uncomfortable (pacing the room ) - Laboratory Results Result Diagrams: 11/13/18 06:35 11/13/18 06:35 - ECG O2 Sat by Pulse Oximetry: 99 (RA) Pulse Ox Interpretation: Normal Medical Decision Making Medical Decision Making: Time: 619 Plan: -- VBG -- BMP -- CBC with differentials -- CXR Portable -- Morphine 2 mg IVP -- Sodium Chloride 0.9% 1000 IV 1000 mls/hr -- Urine Culture -- Cardenas Catheter -- Urinalysis -- US Bladder ONLY/Residual Urine -- US Renal Time: 0700 -- Cardenas catheter placed, immediately draining over 1 liter of fluid and continues to drain. Improved pain after cardenas catheter placed and given morphine. IV fluids started. -- Patient endorsed to Dr. Guaman, pending labs and US. Scribe Attestation: Documented by Nhung Knox, acting as a scribe for Mary Encinas MD. Provider Scribe Attestation: All medical record entries made by the Scribe were at my direction and personally dictated by me. I have reviewed the chart and agree that the record accurately reflects my personal performance of the history, physical exam, medical decision making, and the department course for this patient. I have also personally directed, reviewed, and agree with the discharge instructions and disposition. Disposition - Clinical Impression Clinical Impression: Urinary retention, UTI (urinary tract infection) - Patient ED Disposition Is Patient to be Admitted: Transfer of Care - Disposition Referrals: [facility] [Outside] - 11/16/18 Kevin Mortensen Jr., MD [Staff Provider] - 11/17/18 Disposition: Transfer of Care Disposition Time: 07:00 Condition: STABLE Additional Instructions: Return if not better in 3 days. Prescriptions: Nitrofurantoin Macrocrystals [Macrobid] 100 mg PO BID #10 cap Instructions: Urinary Tract Infections in Adults, Cardenas Catheter, Male, Urinary Retention Print Language: TUNISIAN Patient Signed Over To: Delmer Guaman Handoff Comments: pending labs and US.
[2018-11-13] MEDS ORDERED: Morphine 4 MG/ML VIAL IVP STA (06:20)
[2018-11-13] MEDS ORDERED: Morphine 4 MG/ML VIAL ONE (06:24)
[2018-11-13 06:50] LABS: VENOUS BLOOD GAS BASE EXCESS -3.3 mmol/L (0.0-2.0); VENOUS BLOOD GAS PCO2 40 mmHg (40-60); VENOUS BLOOD GAS PO2 50 mm/Hg (30-55); VENOUS BLOOD PH 7.35 (7.32-7.43)
[2018-11-13 07:02] LABS: BASO % 0.3 % (0.0-2.0); EOS % 0.1 % (0.0-4.0); HEMOGLOBIN 14.1 g/dL (12.0-18.0); LYMPH # 1.1 K/uL (1.0-4.3); LYMPH % 18.3 % (20.0-40.0); MEAN CELL VOLUME 87.9 fl (80.0-94.0); MEAN CORPUSCULAR HEMOGLOBIN 29.9 pg (27.0-31.0); MEAN PLATELET VOLUME 10.7 fl (7.2-11.7); MONO # 0.3 K/uL (0.0-0.8); MONO % 5.8 % (0.0-10.0); NEUT # 4.5 K/uL (1.8-7.0); NEUT % 75.5 % (50.0-75.0); NRBC % 0.1 % (0.0-0.0); RBC 4.72 Mil/uL (4.40-5.90); RED CELL DISTRIBUTION WIDTH 13.4 % (11.5-14.5)
[2018-11-13 07:05] LABS: BLOOD UREA NITROGEN 20 mg/dl (9-20); CALCIUM 9.5 mg/dL (8.4-10.2); GFR NON-AFRICAN AMERICAN > 60
--- NOTE | 2018-11-13 08:14 | ED PDOC ---
- Laboratory Results Result Diagrams: 11/13/18 06:35 11/13/18 06:35 Lab Results: pO2 50 mm/Hg (30-55) 11/13/18 06:45 VBG pH 7.35 (7.32-7.43) 11/13/18 06:45 VBG pCO2 40 mmHg (40-60) 11/13/18 06:45 VBG HCO3 22.0 mmol/L 11/13/18 06:45 VBG Total CO2 23.3 mmol/L (22-28) 11/13/18 06:45 VBG O2 Sat (Calc) 89.4 % (40-65) H 11/13/18 06:45 VBG Base Excess -3.3 mmol/L (0.0-2.0) L 11/13/18 06:45 VBG Potassium 4.0 mmol/L (3.6-5.2) 11/13/18 06:45 Sodium 127.0 mmol/L (132-148) L 11/13/18 06:45 Chloride 97.0 mmol/L (98-107) L 11/13/18 06:45 Glucose 229 mg/dL (75-110) H 11/13/18 06:45 Lactate 1.6 mmol/L (0.7-2.1) 11/13/18 06:45 FiO2 21.0 % 11/13/18 06:45 Urine dip results: Positive for: Nitrate - ECG O2 Sat by Pulse Oximetry: 99 (RA) Pulse Ox Interpretation: Normal - Progress ED Course And Treament: 1201: Spoke with Dr. Mortensen. Made aware of all findings. Wants pt. to get leg bag, antibiotics, and fu with his office. Stable. Resting. AAOx3. Medical Decision Making Medical Decision Makin:00 --Patient signed out to this provider by Dr. Encinas pending US, labs and reevaluation 10:46 Renal US FINDINGS: RIGHT KIDNEY: Measures: 11.7 cm. Normal in size, contour and echogenicity. No stone, solid mass lesion or hydronephrosis visualized. LEFT KIDNEY: Measures: 10.1 cm. Normal in size, contour and echogenicity. No stone, solid mass lesion or hydronephrosis visualized. OTHER FINDINGS: None. IMPRESSION: Unremarkable renal sonogram. Scribe Attestation: Documented by Suzanne Barfield acting as a scribe for Delmer Guaman MD Provider Scribe Attestation: All medical record entries made by the Scribe were at my direction and personally dictated by me. I have reviewed the chart and agree that the record accurately reflects my personal performance of the history, physical exam, medical decision making, and the department course for this patient. I have also personally directed, reviewed, and agree with the discharge instructions and disposition. Disposition Counseled Patient/Family Regarding: Studies Performed, Diagnosis, Need For Followup, Rx Given - Clinical Impression Clinical Impression: Urinary retention, UTI (urinary tract infection) - POA Present On Arrival: None - Disposition Referrals: Kevin Mortensen Jr., MD [Staff Provider] - 11/17/18 [facility] [Outside] - 11/16/18 Disposition: Routine/Home Disposition Time: 12:03 Condition: STABLE Additional Instructions: Return if not better in 3 days. Prescriptions: Nitrofurantoin Macrocrystals [Macrobid] 100 mg PO BID #10 cap Instructions: Urinary Retention, Alvarado Catheter, Male, Urinary Tract Infections in Adults Print Language: SWEDISH
[2018-11-13 08:58] LABS: URINE BILIRUBIN NEGATIVE (NEGATIVE); URINE BLOOD SMALL (NEGATIVE); URINE CLARITY CLOUDY (Clear); URINE COLOR YELLOW (YELLOW); URINE GLUCOSE (UA) 150 mg/dL (NEGATIVE); URINE LEUKOCYTE ESTERASE TRACE Leu/uL (Negative); URINE PROTEIN 30 mg/dL (NEGATIVE); URINE UROBILINOGEN 0.2-1.0 mg/dL (0.2-1.0)
--- NOTE | 2018-11-13 10:49 | US ---
Date of service: 11/13/2018 PROCEDURE: Ultrasound of the Kidneys HISTORY: urinary retention, r/o hydronephrosis COMPARISON: None available. TECHNIQUE: Sonogram of the kidneys. FINDINGS: RIGHT KIDNEY: Measures: 11.7 cm. Normal in size, contour and echogenicity. No stone, solid mass lesion or hydronephrosis visualized. LEFT KIDNEY: Measures: 10.1 cm. Normal in size, contour and echogenicity. No stone, solid mass lesion or hydronephrosis visualized. OTHER FINDINGS: None. IMPRESSION: Unremarkable renal sonogram.
[2018-11-13 12:41] VITALS: BP 119/78; PULSE 88; TEMP 98.5
--- NOTE | 2018-11-13 12:47 | RAD ---
Date of service: 11/13/2018 HISTORY: possible admission COMPARISON: 09/26/2018 FINDINGS: LUNGS: No active pulmonary disease. PLEURA: No significant pleural effusion identified, no pneumothorax apparent. CARDIOVASCULAR: No aortic atherosclerotic calcification present. Normal cardiac size. No pulmonary vascular congestion. OSSEOUS STRUCTURES: No significant abnormalities. VISUALIZED UPPER ABDOMEN: Normal. OTHER FINDINGS: None. IMPRESSION: No active disease.
[2018-11-16 13:19] VITALS: O2SAT 99
--- NOTE | 2018-11-16 13:20 | US ---
Date of service: 11/13/2018 PROCEDURE: Ultrasound of urinary bladder HISTORY: urinary retention COMPARISON: Not available TECHNIQUE: Transabdominal FINDINGS: The bladder is decompressed with a Alvarado catheter balloon seen intraluminally. The bladder cannot be assessed in its decompressed state. IMPRESSION: Decompressed bladder. Alvarado catheter. Limited examination.
== END 2018-11-13 12:38 | disposition home or self-care (01) ==
LOC: H.ER 05:58
DX: N39.0 Urinary tract infection, site not specified (principal); E11.9 Type 2 diabetes mellitus without complications; I10 Essential (primary) hypertension; N40.1 Benign prostatic hyperplasia with lower urinary tract symptoms
CPT/HCPCS: 71045; 76770; 76857; 80048; 81003; 82803; 82948; 85025; 87086; 87181; 96374; 99285; J2270; J7030

== ENCOUNTER 2018-11-15 19:53 | Emergency (ER) | payer MEDICARE ==
[2018-11-15 19:53] VITALS: BMI 23.3
[2018-11-15 19:59] VITALS: RESP 18; TEMP 97.7
--- NOTE | 2018-11-15 20:39 | ED PDOC ---
HPI: Male Pain Time Seen by Provider: 11/15/18 20:11 Chief Complaint (Nursing): Male Genitourinary Chief Complaint (Provider): Urinary Tract Infection History Per: Patient History/Exam Limitations: no limitations Onset/Duration Of Symptoms: Days (several), Persistent Current Symptoms Are (Timing): Still Present Severity: Mild Quality Of Discomfort: Pressure Alleviating Factors: None (Pt presents to the ED after having been diagnosed 48 hours prior with Urinary Retention/UTI and provided a cardenas catheter and leg ba g; he was also provided a referral to Dr Mortensen, with whom he has an appointment at 11am tomorrow. The patient indicates that he is concerned because his penis is hurting since insertion of the catheter. ) Past Medical History Vital Signs: Last Vital Signs Temp 97.7 F 11/15/18 19:55 Pulse 75 11/15/18 19:55 Resp 18 11/15/18 19:55 BP 161/78 H 11/15/18 19:55 Pulse Ox 97 11/15/18 19:55 - Medical History PMH: Benign Prostatic Hyperplasia, Diabetes, HTN - Surgical History Surgical History: Hernia Repair ( x 2) - Family History Family History: States: Unknown Family Hx - Home Medications Home Medications: Ambulatory Orders Medication Instructions Recorded Alfuzosin Hydrochloride 10 mg PO DAILY 12/31/14 Cetirizine Hydrochloride 10 mg PO DAILY 12/31/14 [Cetirizine] Glimepiride 4 mg PO BID 12/31/14 Methylprednisolone [Medrol Dose 4 mg PO DAILY 12/31/14 Pack (21 tabs)] Pioglitazone [Actos] 15 mg PO DAILY 12/31/14 Prednisone 10 mg PO BID #10 tab 12/31/14 Propranolol [Inderal] 20 mg PO BID 12/31/14 Ranitidine HCl [Ranitidine 150] 150 mg PO BID 12/31/14 Sitagliptin Phosphate [Januvia] 100 mg PO DAILY 12/31/14 hydrOXYzine HCl [Atarax] 25 mg PO Q6H PRN 12/31/14 Naproxen 500 mg PO Q12 #20 tab 07/02/15 Sulfamethoxazole/Trimethopri 1 tab PO BID #20 tab 07/02/15 [Bactrim Ds 800 mg-160 mg] Ibuprofen [Motrin] 400 mg PO Q8 #30 tab 09/16/15 Ibuprofen [Motrin] 600 mg PO Q8 PRN #21 tab 08/30/15 diaZEpam [Valium] 5 mg PO Q6 PRN #8 tab 08/30/15 Tramadol Hydrochloride 50 mg PO Q6 PRN #15 tab 09/02/15 Acetaminophen 650 mg PO QID PRN #30 tablet 04/25/17 Tamsulosin [Flomax] 0.4 mg PO DAILY #30 cap 12/22/17 Nitrofurantoin Macrocrystals 100 mg PO BID #14 cap 12/24/17 [Macrobid] Ibuprofen [Motrin] 600 mg PO TID 7 Days tab 07/14/18 Meclizine [Meclizine*] 25 mg PO Q12 PRN #10 tab 07/14/18 Nitrofurantoin Macrocrystals 100 mg PO BID #10 cap 11/13/18 [Macrobid] - Allergies Allergies/Adverse Reactions: Allergies Allergy/AdvReac Type Severity Reaction Status Date / Time No Known Allergies Allergy Verified 11/13/18 06:13 Review of Systems Genitourinary Male: Positive for: Penile Pain. Negative for: Hematuria, Penile Discharge, Rash Physical Exam - Reviewed Nursing Documentation Reviewed: Yes Vital Signs Reviewed: Yes - Physical Exam Appears: Positive for: Well, Non-toxic, No Acute Distress, Uncomfortable Head Exam: Positive for: NORMAL INSPECTION Skin: Positive for: Normal Color, Warm, Dry. Negative for: Diaphoresis, Pallor, Rash Eye Exam: Positive for: Normal appearance Neck: Positive for: Normal, Painless ROM, Supple. Negative for: Decreased ROM Cardiovascular/Chest: Positive for: Regular Rate, Rhythm Respiratory: Positive for: Normal Breath Sounds Gastrointestinal/Abdominal: Positive for: Normal Exam, Bowel Sounds (active in all four quadrants) Male Genital Exam: Positive for: normal genitalia (there is a cardenas catheter in place and intact;there is no leaking, no discharge or drainage; there is no erythema, drainage ordischarge;). Negative for: erythema, lesions Back: Positive for: Normal Inspection. Negative for: L CVA Tenderness, R CVA Tenderness - ECG O2 Sat by Pulse Oximetry: 97 Medical Decision Making Medical Decision Making: Pt is on macrobid and UA culture indicates a sensitivity to macrobid Pt encouraged to continue macrobid therapy and to follow up with Dr Mortensen in morning as scheduled Pt is stable for discharge Disposition - Clinical Impression Clinical Impression: Urinary tract infection - Patient ED Disposition Is Patient to be Admitted: No Doctor Will See Patient In The: Office Counseled Patient/Family Regarding: Diagnosis, Need For Followup, Rx Given - Disposition Referrals: Kevin Mortensen Jr., MD [Staff Provider] - Disposition: Routine/Home Disposition Time: 20:43 Condition: STABLE Instructions: Urinary Tract Infection, Adult (DC), Urinary Tract Infections in Adults - POA Present On Arrival: Cath Associated UTI
[2018-11-15 21:22] VITALS: BP 139/73; PULSE 69; O2SAT 100
== END 2018-11-15 21:24 | disposition home or self-care (01) ==
LOC: H.ER 19:53
DX: N39.0 Urinary tract infection, site not specified (principal); E11.9 Type 2 diabetes mellitus without complications; I10 Essential (primary) hypertension; N40.0 Benign prostatic hyperplasia without lower urinary tract symptoms

== ENCOUNTER 2018-12-04 16:26 | Emergency (ER) | payer MEDICARE ==
[2018-12-04 16:26] VITALS: BMI 23.3
[2018-12-04 17:30] VITALS: RESP 18; O2SAT 98
--- NOTE | 2018-12-04 20:02 | ED PDOC ---
HPI: Male Pain Time Seen by Provider: 12/04/18 18:49 Chief Complaint (Nursing): Male Genitourinary Chief Complaint (Provider): Male genitourinary History Per: Patient History/Exam Limitations: no limitations Additional Complaint(s): 73 year old male presents to the ED for Alvarado catheter removal. Patient had Alvarado catheter inserted at [facility] for urinary retention 1 month ago. Due to insurance issues, patient was unable to follow up with urologist. He is requesting today to have it removed. Denies hematuria, abdominal pain, back pain, fever, or chills. Patient had been taking the antibiotics initially when Catheter was placed and completed the course as prescribed. PMD: Dr. Joe Ortega Past Medical History Reviewed: Historical Data, Nursing Documentation, Vital Signs Vital Signs: Last Vital Signs Temp 98.2 F 12/04/18 17:30 Pulse 65 12/04/18 17:30 Resp 18 12/04/18 17:30 BP 127/79 12/04/18 17:30 Pulse Ox 98 12/04/18 17:30 - Medical History PMH: Benign Prostatic Hyperplasia, Diabetes, HTN - Surgical History Surgical History: Hernia Repair ( x 2) - Family History Family History: States: Unknown Family Hx - Home Medications Home Medications: Ambulatory Orders Medication Instructions Recorded Cetirizine Hydrochloride 10 mg PO DAILY 12/31/14 [Cetirizine] Methylprednisolone [Medrol Dose 4 mg PO DAILY 12/31/14 Pack (21 tabs)] Pioglitazone [Actos] 15 mg PO DAILY 12/31/14 RX: Alfuzosin Hydrochloride 10 mg PO DAILY 12/31/14 RX: Glimepiride 4 mg PO BID 12/31/14 RX: Prednisone 10 mg PO BID #10 tab 12/31/14 RX: Propranolol [Inderal] 20 mg PO BID 12/31/14 Ranitidine HCl [Ranitidine 150] 150 mg PO BID 12/31/14 Sitagliptin Phosphate [Januvia] 100 mg PO DAILY 12/31/14 hydrOXYzine HCl [Atarax] 25 mg PO Q6H PRN 12/31/14 RX: Naproxen 500 mg PO Q12 #20 tab 07/02/15 Sulfamethoxazole/Trimethopri 1 tab PO BID #20 tab 07/02/15 [Bactrim Ds 800 mg-160 mg] Ibuprofen [Motrin] 400 mg PO Q8 #30 tab 07/12/15 Ibuprofen [Motrin] 600 mg PO Q8 PRN #21 tab 08/30/15 diaZEpam [Valium] 5 mg PO Q6 PRN #8 tab 08/30/15 RX: Tramadol Hydrochloride 50 mg PO Q6 PRN #15 tab 09/02/15 RX: Acetaminophen 650 mg PO QID PRN #30 tablet 04/25/17 Tamsulosin [Flomax] 0.4 mg PO DAILY #30 cap 12/22/17 Nitrofurantoin Macrocrystals 100 mg PO BID #14 cap 12/24/17 [Macrobid] Ibuprofen [Motrin] 600 mg PO TID 7 Days tab 07/14/18 RX: Meclizine [Meclizine*] 25 mg PO Q12 PRN #10 tab 07/14/18 Nitrofurantoin Macrocrystals 100 mg PO BID #10 cap 11/13/18 [Macrobid] - Allergies Allergies/Adverse Reactions: Allergies Allergy/AdvReac Type Severity Reaction Status Date / Time No Known Allergies Allergy Verified 12/04/18 17:33 Review of Systems ROS Statement: Except As Marked, All Systems Reviewed And Found Negative Constitutional: Negative for: Fever, Chills Gastrointestinal: Negative for: Abdominal Pain Genitourinary Male: Negative for: Hematuria Musculoskeletal: Negative for: Back Pain Physical Exam - Reviewed Nursing Documentation Reviewed: Yes Vital Signs Reviewed: Yes - Physical Exam Appears: Positive for: Well, No Acute Distress Gastrointestinal/Abdominal: Positive for: Normal Exam, Soft. 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 Scribe Attestation: Documented by González Singleton acting as a scribe for Oksana Santiago MD. Provider Scribe Attestation: All medical record entries made by the Scribe were at my direction and personally dictated by me. I have reviewed the chart and agree that the record accurately reflects my personal performance of the history, physical exam, medical decision making, and the department course for this patient. I have also personally directed, reviewed, and agree with the discharge instructions and disposition. Disposition - Clinical Impression Clinical Impression: Urinary retention - Disposition Referrals: Yobany Cardoza MD [Medical Doctor] - 12/07/18 ([facility]) Disposition: Routine/Home Disposition Time: 22:00 Condition: STABLE Instructions: Urinary Retention (DC) Forms: [employer] (Turkish) Print Language: KINYARWANDA
[2018-12-04 20:17] VITALS: BP 121/76; PULSE 62; TEMP 98
== END 2018-12-04 20:17 | disposition home or self-care (01) ==
LOC: H.ER 16:26
DX: Z46.6 Encounter for fitting and adjustment of urinary device (principal); E11.9 Type 2 diabetes mellitus without complications; I10 Essential (primary) hypertension; N40.1 Benign prostatic hyperplasia with lower urinary tract symptoms

== ENCOUNTER 2018-12-06 06:54 | Emergency (ER) | payer MEDICARE ==
[2018-12-06 06:55] VITALS: BMI 23.3
--- NOTE | 2018-12-06 10:17 | ED PDOC ---
HPI: Male Pain Time Seen by Provider: 12/06/18 07:57 Chief Complaint (Nursing): Male Genitourinary Chief Complaint (Provider): Male Genitourinary History Per: Patient History/Exam Limitations: no limitations Onset/Duration Of Symptoms: Hrs Current Symptoms Are (Timing): Still Present Additional Complaint(s): Patient is a 73 y/o male with a PMHx of HTN, BPH, and DM who presents to the ED for evaluation of difficulty urinating since last night. Patient had prostatitis that was removed, but has been experiencing suprapubic pain and inability to urinate. Patient denies fever, vomiting, and back pain. PCP: None Provided Urologist: Dr. Leary Past Medical History Reviewed: Historical Data, Nursing Documentation, Vital Signs Vital Signs: Last Vital Signs Temp 97.7 F 12/06/18 07:10 Pulse 82 12/06/18 07:10 Resp 20 12/06/18 07:10 BP 159/94 H 12/06/18 07:10 Pulse Ox 98 12/06/18 07:10 - Medical History PMH: Benign Prostatic Hyperplasia, Diabetes, HTN - Surgical History Surgical History: Hernia Repair ( x 2) - Family History Family History: States: Unknown Family Hx - Home Medications Home Medications: Ambulatory Orders Medication Instructions Recorded Cetirizine Hydrochloride 10 mg PO DAILY 12/31/14 [Cetirizine] Methylprednisolone [Medrol Dose 4 mg PO DAILY 12/31/14 Pack (21 tabs)] Pioglitazone [Actos] 15 mg PO DAILY 12/31/14 RX: Alfuzosin Hydrochloride 10 mg PO DAILY 12/31/14 RX: Glimepiride 4 mg PO BID 12/31/14 RX: Prednisone 10 mg PO BID #10 tab 12/31/14 RX: Propranolol [Inderal] 20 mg PO BID 12/31/14 Ranitidine HCl [Ranitidine 150] 150 mg PO BID 12/31/14 Sitagliptin Phosphate [Januvia] 100 mg PO DAILY 12/31/14 hydrOXYzine HCl [Atarax] 25 mg PO Q6H PRN 12/31/14 RX: Naproxen 500 mg PO Q12 #20 tab 07/02/15 Sulfamethoxazole/Trimethopri 1 tab PO BID #20 tab 07/02/15 [Bactrim Ds 800 mg-160 mg] Ibuprofen [Motrin] 400 mg PO Q8 #30 tab 07/12/15 Ibuprofen [Motrin] 600 mg PO Q8 PRN #21 tab 08/30/15 diaZEpam [Valium] 5 mg PO Q6 PRN #8 tab 08/30/15 RX: Tramadol Hydrochloride 50 mg PO Q6 PRN #15 tab 09/02/15 RX: Acetaminophen 650 mg PO QID PRN #30 tablet 04/25/17 Tamsulosin [Flomax] 0.4 mg PO DAILY #30 cap 12/22/17 Nitrofurantoin Macrocrystals 100 mg PO BID #14 cap 12/24/17 [Macrobid] Ibuprofen [Motrin] 600 mg PO TID 7 Days tab 07/14/18 RX: Meclizine [Meclizine*] 25 mg PO Q12 PRN #10 tab 07/14/18 Nitrofurantoin Macrocrystals 100 mg PO BID #10 cap 11/13/18 [Macrobid] Ciprofloxacin HCl [Cipro] 500 mg PO BID #14 tablet 12/06/18 - Allergies Allergies/Adverse Reactions: Allergies Allergy/AdvReac Type Severity Reaction Status Date / Time No Known Allergies Allergy Verified 12/06/18 07:10 Review of Systems ROS Statement: Except As Marked, All Systems Reviewed And Found Negative Constitutional: Negative for: Fever Gastrointestinal: Positive for: Abdominal Pain (suprapubic). Negative for: Vomiting Genitourinary Male: Positive for: Other (unable to urinate) Musculoskeletal: Negative for: Back Pain Physical Exam - Reviewed Nursing Documentation Reviewed: Yes Vital Signs Reviewed: Yes - Physical Exam Appears: Positive for: Non-toxic, No Acute Distress Head Exam: Positive for: ATRAUMATIC, NORMAL INSPECTION, NORMOCEPHALIC Skin: Positive for: Normal Color, Warm, Dry Eye Exam: Positive for: EOMI, Normal appearance, PERRL Neck: Positive for: Normal, Painless ROM, Supple Cardiovascular/Chest: Positive for: Regular Rate, Rhythm. Negative for: Murmur Respiratory: Positive for: Normal Breath Sounds. Negative for: Respiratory Distress Gastrointestinal/Abdominal: Positive for: Normal Exam, Soft. Negative for: Tenderness Back: Positive for: Normal Inspection. Negative for: L CVA Tenderness, R CVA Tenderness, Vertebral Tenderness Extremity: Positive for: Normal ROM. Negative for: Pedal Edema, Deformity Neurologic/Psych: Positive for: Alert, Oriented. Negative for: Motor/Sensory Deficits - ECG O2 Sat by Pulse Oximetry: 98 (RA) Pulse Ox Interpretation: Normal Medical Decision Making Medical Decision Making: Time: 814 Impression: Urinary tension and retention due to UTI Plan: Dipstick Cardenas [Urinary Catheter Insertion] Time: 1000 Urinary cardenas catheter placed by nurse. Reevaluated and was able to produce a half a liter of urine. Urine depth is positive for leuks and blood. Patient will be prescribed for antibiotics. Followup with Urologist (Dr. Leary) in two days. ---- Scribe Attestation: Documented by Johan Thakkar, acting as a scribe for Estevan Bunn MD. Provider Scribe Attestation: All medical record entries made by the Scribe were at my direction and personally dictated by me. I have reviewed the chart and agree that the record accurately reflects my personal performance of the history, physical exam, medical decision making, and the department course for this patient. I have also personally directed, reviewed, and agree with the discharge instructions and disposition. Disposition - Clinical Impression Clinical Impression: Urinary retention, Status post insertion of Cardenas catheter, UTI (urinary tract infection) - Patient ED Disposition Is Patient to be Admitted: No Doctor Will See Patient In The: Office Counseled Patient/Family Regarding: Studies Performed, Diagnosis, Need For Followup - Disposition Referrals: Kevin Mortensen Jr., MD [Staff Provider] - Disposition: Routine/Home Disposition Time: 10:30 Condition: GOOD Additional Instructions: SHONA LEHMAN, thank you for letting us take care of you today. Your provider was Estevan Bunn MD and you were treated for MALE GENITOURINARY. The emergency medical care you received today was directed at your acute symptoms. If you were prescribed any medication, please fill it and take as directed. It may take several days for your symptoms to resolve. Return to the Emergency Department if your symptoms worsen, do not improve, or if you have any other problems. Please contact your doctor or call one of the physicians/clinics you have been referred to that are listed on the Patient Visit Information form that is included in your discharge packet. Bring any paperwork you were given at discharge with you along with any medications you are taking to your follow up visit. Our treatment cannot replace ongoing medical care by a primary care provider outside of the emergency department. Thank you for allowing the [facility] team to be part of your care today. If you had an X-Ray or CT scan: A Radiologist will review the ED reading if any change in treatment is needed we will contact you. If you had a blood, urine, or wound culture: It will take several days for the results, if any change in treatment is needed we will contact you. If you had an STI test: It will take 48 hours for the results. Please call after 1 week if you have not heard back. Prescriptions: Ciprofloxacin HCl [Cipro] 500 mg PO BID #14 tablet Instructions: Cardenas Catheter, Male, Urinary Retention, Urinary Tract Infection, Adult (DC) Forms: [employer] (Kazakh) Print Language: UGANDAN
[2018-12-06 10:26] VITALS: BP 146/86; PULSE 80; RESP 16; TEMP 97.2; O2SAT 98
== END 2018-12-06 10:25 | disposition home or self-care (01) ==
LOC: H.ER 06:54
DX: R33.9 Retention of urine, unspecified (principal); N39.0 Urinary tract infection, site not specified; N40.1 Benign prostatic hyperplasia with lower urinary tract symptoms; N41.9 Inflammatory disease of prostate, unspecified; E11.9 Type 2 diabetes mellitus without complications; I10 Essential (primary) hypertension

== ENCOUNTER 2018-12-24 11:18 | Emergency (ER) | payer MEDICARE ==
[2018-12-24 11:22] VITALS: BMI 23.3
--- NOTE | 2018-12-24 12:56 | ED PDOC ---
HPI: Male Pain Time Seen by Provider: 12/24/18 12:29 Chief Complaint (Nursing): Male Genitourinary Chief Complaint (Provider): Cardenas catheter History Per: Patient History/Exam Limitations: no limitations Quality Of Discomfort: denies: "Pain" Associated Symptoms: denies: Fever, Chills, Nausea, Loss Of Appetite, Back Pain, Chest Pain, Urinary Symptoms Additional History Per: Patient Additional Complaint(s): 73yo male, with history of diabetes, HTN, and BPH, comes to ER requesting his cardenas catheter to be removed. Patient states he was evaluated by Dr. Mortensen, and had the cardenas placed 2 months ago; he states he followed up with Dr. Mortensen and was instructed to return for a repeat evaluation in 10 days. Patient presents today stating he feels better, has been urinating better and wants the catheter out. He denies any fever, chills, dysuria, hematuria or lower back pain. Patient also denies any chest pain, shortness of breath, and offers no additional complaints. Past Medical History Reviewed: Historical Data, Nursing Documentation, Vital Signs Vital Signs: Last Vital Signs Temp 98.3 F 12/24/18 12:03 Pulse 70 12/24/18 12:03 Resp 16 12/24/18 12:03 BP 161/92 H 12/24/18 12:03 Pulse Ox 98 12/24/18 12:03 - Medical History PMH: Benign Prostatic Hyperplasia, Diabetes, HTN - Surgical History Surgical History: Hernia Repair ( x 2) - Family History Family History: States: No Known Family Hx - Home Medications Home Medications: Ambulatory Orders Medication Instructions Recorded Alfuzosin Hydrochloride 10 mg PO DAILY 12/31/14 Cetirizine Hydrochloride 10 mg PO DAILY 12/31/14 [Cetirizine] Glimepiride 4 mg PO BID 12/31/14 Methylprednisolone [Medrol Dose 4 mg PO DAILY 12/31/14 Pack (21 tabs)] Pioglitazone [Actos] 15 mg PO DAILY 12/31/14 Prednisone 10 mg PO BID #10 tab 12/31/14 Propranolol [Inderal] 20 mg PO BID 12/31/14 Ranitidine HCl [Ranitidine 150] 150 mg PO BID 12/31/14 Sitagliptin Phosphate [Januvia] 100 mg PO DAILY 12/31/14 hydrOXYzine HCl [Atarax] 25 mg PO Q6H PRN 12/31/14 Naproxen 500 mg PO Q12 #20 tab 07/02/15 Sulfamethoxazole/Trimethopri 1 tab PO BID #20 tab 07/02/15 [Bactrim Ds 800 mg-160 mg] Ibuprofen [Motrin] 400 mg PO Q8 #30 tab 07/12/15 Ibuprofen [Motrin] 600 mg PO Q8 PRN #21 tab 08/30/15 diaZEpam [Valium] 5 mg PO Q6 PRN #8 tab 08/30/15 Tramadol Hydrochloride 50 mg PO Q6 PRN #15 tab 09/02/15 Acetaminophen 650 mg PO QID PRN #30 tablet 04/25/17 Tamsulosin [Flomax] 0.4 mg PO DAILY #30 cap 12/22/17 Nitrofurantoin Macrocrystals 100 mg PO BID #14 cap 12/24/17 [Macrobid] Ibuprofen [Motrin] 600 mg PO TID 7 Days tab 07/14/18 Meclizine [Meclizine*] 25 mg PO Q12 PRN #10 tab 07/14/18 Nitrofurantoin Macrocrystals 100 mg PO BID #10 cap 11/13/18 [Macrobid] Ciprofloxacin HCl [Cipro] 500 mg PO BID #14 tablet 12/06/18 Nitrofurantoin Macrocrystals 100 mg PO BID #14 cap 12/10/18 [Macrobid] Nitrofurantoin Macrocrystals 100 mg PO BID #10 cap 12/24/18 [Macrobid] - Allergies Allergies/Adverse Reactions: Allergies Allergy/AdvReac Type Severity Reaction Status Date / Time No Known Allergies Allergy Verified 12/24/18 12:02 Review of Systems ROS Statement: Except As Marked, All Systems Reviewed And Found Negative Constitutional: Negative for: Fever, Chills Cardiovascular: Negative for: Chest Pain Respiratory: Negative for: Shortness of Breath Genitourinary Male: Negative for: Dysuria, Frequency, Hematuria Musculoskeletal: Negative for: Back Pain Physical Exam - Reviewed Nursing Documentation Reviewed: Yes Vital Signs Reviewed: Yes - Physical Exam Appears: Positive for: Non-toxic, No Acute Distress Head Exam: Positive for: ATRAUMATIC, NORMAL INSPECTION, NORMOCEPHALIC Skin: Positive for: Normal Color Eye Exam: Positive for: Normal appearance, EOMI, PERRL Neck: Positive for: Normal, Supple Cardiovascular/Chest: Positive for: Regular Rate, Rhythm. Negative for: Tachycardia Respiratory: Positive for: Normal Breath Sounds. Negative for: Wheezing Gastrointestinal/Abdominal: Positive for: Normal Exam, Soft Male Genital Exam: Positive for: normal genitalia, other (cardenas in place, good urine output). Negative for: bleeding, lesions, urethral discharge Back: Positive for: Normal Inspection. Negative for: L CVA Tenderness, R CVA Tenderness Extremity: Positive for: Normal ROM. Negative for: Pedal Edema Neurologic/Psych: Positive for: Alert, Oriented. 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 urinated with no issues. Possible uti. Will dc with antibiotics. Macrobid sensitive per previous. Medical Decision Making Medical Decision Making: Impression: Cardenas catheter removal Plan: Discussed case with Dr. Mortensen, who states he does not know patient well, and is comfortable with ER course of care -- Cardenas cath removed, patient to be observed until he is able to provide urine sample. UDip ordered. Scribe Attestation: Documented by Jessica Mckeon acting as a scribe for Delmer Guaman MD Provider Attestation: All medical record entries made by the Scribe were at my direction and personally dictated by me. I have reviewed the chart and agree that the record accurately reflects my personal performance of the history, physical exam, medical decision making, and the department course for this patient. I have also personally directed, reviewed, and agree with the discharge instructions and disposition. Disposition - Clinical Impression Clinical Impression: Encounter for Cardenas catheter removal, UTI (urinary tract infection) - Patient ED Disposition Is Patient to be Admitted: No Counseled Patient/Family Regarding: Studies Performed, Diagnosis, Need For Followup, Rx Given - Disposition Referrals: [facility] [Outside] - 12/24/18 Disposition: Routine/Home Disposition Time: 14:52 Condition: STABLE Additional Instructions: Return if not better in 3 days. Prescriptions: Nitrofurantoin Macrocrystals [Macrobid] 100 mg PO BID #10 cap Instructions: Urinary Tract Infections in Adults Forms: [employer] (Canadian)
[2018-12-24 16:30] VITALS: BP 148/86; PULSE 73; RESP 18; TEMP 98.1; O2SAT 100
== END 2018-12-24 15:05 | disposition home or self-care (01) ==
LOC: H.ER 11:18
DX: Z46.6 Encounter for fitting and adjustment of urinary device (principal); E11.9 Type 2 diabetes mellitus without complications; I10 Essential (primary) hypertension; N40.0 Benign prostatic hyperplasia without lower urinary tract symptoms; N39.0 Urinary tract infection, site not specified

== ENCOUNTER 2018-12-26 22:30 | Emergency (ER) | payer MEDICARE ==
[2018-12-26 22:30] VITALS: BMI 23.3
[2018-12-26 22:36] VITALS: RESP 18; TEMP 97.9
--- NOTE | 2018-12-26 23:19 | ED PDOC ---
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 Patient reports the catheter was taken out on December 24, 2018. He was urinating fine prior to arrival and his last bowel movement was 3 hours ago. Otherwise, patient denies fever, chest pain, shortness of breath, headache, abdominal pain, vomiting or diarrhea. PMD:Non H Provider Past Medical History Reviewed: Historical Data, Nursing Documentation, Vital Signs Vital Signs: Last Vital Signs Temp 97.9 F 12/26/18 22:35 Pulse 84 12/26/18 22:35 Resp 18 12/26/18 22:35 BP 152/92 H 12/26/18 22:35 Pulse Ox 98 12/26/18 22:35 - Medical History PMH: Benign Prostatic Hyperplasia, Diabetes, HTN - Surgical History Surgical History: Hernia Repair ( x 2) - Family History Family History: States: Unknown Family Hx - Home Medications Home Medications: Ambulatory Orders Medication Instructions Recorded Alfuzosin Hydrochloride 10 mg PO DAILY 12/31/14 Cetirizine Hydrochloride 10 mg PO DAILY 12/31/14 [Cetirizine] Glimepiride 4 mg PO BID 12/31/14 Methylprednisolone [Medrol Dose 4 mg PO DAILY 12/31/14 Pack (21 tabs)] Pioglitazone [Actos] 15 mg PO DAILY 12/31/14 Prednisone 10 mg PO BID #10 tab 12/31/14 Propranolol [Inderal] 20 mg PO BID 12/31/14 Ranitidine HCl [Ranitidine 150] 150 mg PO BID 12/31/14 Sitagliptin Phosphate [Januvia] 100 mg PO DAILY 12/31/14 hydrOXYzine HCl [Atarax] 25 mg PO Q6H PRN 12/31/14 Naproxen 500 mg PO Q12 #20 tab 07/02/15 Sulfamethoxazole/Trimethopri 1 tab PO BID #20 tab 07/02/15 [Bactrim Ds 800 mg-160 mg] Ibuprofen [Motrin] 400 mg PO Q8 #30 tab 07/12/15 Ibuprofen [Motrin] 600 mg PO Q8 PRN #21 tab 08/30/15 diaZEpam [Valium] 5 mg PO Q6 PRN #8 tab 08/30/15 Tramadol Hydrochloride 50 mg PO Q6 PRN #15 tab 09/02/15 Acetaminophen 650 mg PO QID PRN #30 tablet 04/25/17 Tamsulosin [Flomax] 0.4 mg PO DAILY #30 cap 12/22/17 Nitrofurantoin Macrocrystals 100 mg PO BID #14 cap 12/24/17 [Macrobid] Ibuprofen [Motrin] 600 mg PO TID 7 Days tab 07/14/18 Meclizine [Meclizine*] 25 mg PO Q12 PRN #10 tab 07/14/18 Nitrofurantoin Macrocrystals 100 mg PO BID #10 cap 11/13/18 [Macrobid] Ciprofloxacin HCl [Cipro] 500 mg PO BID #14 tablet 12/06/18 Nitrofurantoin Macrocrystals 100 mg PO BID #14 cap 12/10/18 [Macrobid] Nitrofurantoin Macrocrystals 100 mg PO BID #10 cap 12/24/18 [Macrobid] - Allergies Allergies/Adverse Reactions: Allergies Allergy/AdvReac Type Severity Reaction Status Date / Time No Known Allergies Allergy Verified 12/26/18 22:33 Review of Systems ROS Statement: Except As Marked, All Systems Reviewed And Found Negative Constitutional: Negative for: Fever Cardiovascular: Negative for: Chest Pain Respiratory: Negative for: Shortness of Breath Gastrointestinal: Negative for: Vomiting, Abdominal Pain, Diarrhea Genitourinary Male: Positive for: Other (unable to urinate ) Neurological: Negative for: Headache Physical Exam - Reviewed Nursing Documentation Reviewed: Yes Vital Signs Reviewed: Yes - Physical Exam Appears: Positive for: Well, Non-toxic, No Acute Distress Head Exam: Positive for: ATRAUMATIC, NORMAL INSPECTION, NORMOCEPHALIC Skin: Positive for: Normal Color, Warm, Dry. Negative for: Rash Eye Exam: Positive for: EOMI, Normal appearance, PERRL ENT: Positive for: Normal ENT Inspection Neck: Positive for: Normal, Painless ROM, Supple. Negative for: Decreased ROM Cardiovascular/Chest: Positive for: Regular Rate, Rhythm. Negative for: Murmur Respiratory: Positive for: Normal Breath Sounds. Negative for: Decreased Breath Sounds, Respiratory Distress Gastrointestinal/Abdominal: Positive for: Soft, Tenderness (upon palpation ), Other (upon bladder exam, there is palpable distention past pubic symphysis) Back: Positive for: Normal Inspection Extremity: Positive for: Normal ROM. Negative for: Tenderness, Pedal Edema, Deformity Neurologic/Psych: Positive for: Alert, Oriented (x3). Negative for: Motor/Sensory Deficits - Laboratory Results Result Diagrams: 12/26/18 23:25 12/26/18 23:25 - ECG O2 Sat by Pulse Oximetry: 98 (RA) Pulse Ox Interpretation: Normal Medical Decision Making Medical Decision Making: Time: 2249 Impression: urinary retention with no known history with frequent use of catheter Plan: BMP CBC w/ differential [place] Urinalysis Reevaluation Patients labs and urine are remarkable. Patient discharged with leg back and follow with urologist on Friday. Scribe Attestation: Documented by Razia Barragan, acting as a scribe for Mary Encinas MD Provider Scribe Attestation: All medical record entries made by the Scribe were at my direction and personally dictated by me. I have reviewed the chart and agree that the record accurately reflects my personal performance of the history, physical exam, medical decision making, and the department course for this patient. I have also personally directed, reviewed, and agree with the discharge instructions and disposition. Disposition - Clinical Impression Clinical Impression: Urinary obstruction - Disposition Referrals: Kevin Mortensen Jr., MD [Staff Provider] - Condition: IMPROVED Additional Instructions: Follow up with urologist on Friday. Return to the emergency department if you develop worsened pain, fever, or other new symptoms. Instructions: Urinary Obstruction (DC) Forms: [employer] (Kyrgyz) Print Language: [place]
[2018-12-26 23:58] LABS: BASO % 0.7 % (0.0-2.0); EOS # 0.2 K/uL (0.0-0.7); EOS % 3.8 % (0.0-4.0); HEMOGLOBIN 13.2 g/dL (12.0-18.0); LYMPH # 1.7 K/uL (1.0-4.3); MEAN CELL VOLUME 87.8 fl (80.0-94.0); MEAN CORPUSCULAR HEMOGLOBIN 29.3 pg (27.0-31.0); MEAN CORPUSCULAR HGB CONC 33.3 g/dL (33.0-37.0); MEAN PLATELET VOLUME 9.9 fl (7.2-11.7); MONO # 0.4 K/uL (0.0-0.8); MONO % 9.5 % (0.0-10.0); NEUT # 2.1 K/uL (1.8-7.0); NRBC % 0.1 % (0.0-0.0); RBC 4.52 Mil/uL (4.40-5.90); RED CELL DISTRIBUTION WIDTH 13.5 % (11.5-14.5); WHITE BLOOD COUNT 4.4 K/uL (4.8-10.8)
[2018-12-27 00:05] LABS: SQUAMOUS EPITHIAL < 1 /hpf (0-5); URINE BACTERIA RARE (<OCC); URINE BILIRUBIN NEGATIVE (NEGATIVE); URINE BLOOD NEGATIVE (NEGATIVE); URINE CLARITY SLIGHTY-CLOUDY (Clear); URINE COLOR YELLOW (YELLOW); URINE GLUCOSE (UA) NEG (NEGATIVE); URINE LEUKOCYTE ESTERASE NEG Leu/uL (Negative); URINE PROTEIN 30 mg/dL (NEGATIVE); URINE UROBILINOGEN 0.2-1.0 mg/dL (0.2-1.0)
[2018-12-27 00:08] LABS: BLOOD UREA NITROGEN 19 mg/dl (9-20); CALCIUM 10.1 mg/dL (8.4-10.2); GFR NON-AFRICAN AMERICAN > 60
[2018-12-27 01:40] VITALS: BP 117/63; PULSE 76; O2SAT 99
== END 2018-12-27 01:39 | disposition home or self-care (01) ==
LOC: H.ER 22:30
DX: N13.9 Obstructive and reflux uropathy, unspecified (principal); E11.9 Type 2 diabetes mellitus without complications; I10 Essential (primary) hypertension; N40.1 Benign prostatic hyperplasia with lower urinary tract symptoms; R33.8 Other retention of urine